=== PATIENT | female | born 1965 | race Caucasian/White ===

== ENCOUNTER 2016-05-03 11:10 | Emergency (ER) | payer OTHER ==
[2016-05-03 11:26] VITALS: BP 154/71; PULSE 77; TEMP 97.8; BMI 38.2
--- NOTE | 2016-05-03 12:17 | PDOC ---
History of Present Illness - General Chief Complaint: Rash Stated Complaint: ? shingles BACK PAIN, RASH Time Seen by Provider: 05/03/16 11:36 History Source: Patient Exam Limitations: No Limitations - History of Present Illness Initial Comments: 05/03/16 12:12 PAINFUL RASH RIGHT HIP X 1 WEEK, GETTING WORSE Timing/Duration: reports: getting worse, week Severity: Yes: mild Location: reports: torso. denies: genitalia Past History - Past Medical History Allergies/Adverse Reactions: Allergies Allergy/AdvReac Type Severity Reaction Status Date / Time No Known Allergies Allergy Verified 05/03/16 11:20 Home Medications: Ambulatory Orders Albuterol Sulfate Inhaler - [Ventolin HFA Inhaler -] 1 - 2 inh PO Q4H #1 inhaler 03/02/13 Metoprolol Tartrate [Lopressor -] 50 mg PO DAILY #30 tablet 09/20/13 Metronidazole [Flagyl] 500 mg PO QID #28 tablet 08/22/14 Oxycodone HCl/Acetaminophen [Percocet 5/325 -] 1 - 2 tab PO Q6H #20 tab Simvastatin 10 mg PO DAILY 08/22/14 Anemia: No Asthma: Yes (NO RECENT ATTACK) Cancer: No Cardiac Disorders: No CVA: No COPD: No CHF: No Dementia: No Diabetes: No GI Disorders: Yes (REFLUX) Disorders: No HTN: Yes Hypercholesterolemia: Yes Liver Disease: No Suicide Attempt (Hx): No Seizures: No Thyroid Disease: No - Surgical History Abdominal Surgery: No Appendectomy: Yes (EGD,COLONOSCOPY) Cardiac Surgery: No Cholecystectomy: Yes (LAPAROSCOPIC) Lung Surgery: No Neurologic Surgery: No Orthopedic Surgery: No - Psycho/Social/Smoking Cessation Hx Anxiety: No Suicidal Ideation: No Smoking Status: Yes Smoking History: Current every day smoker Have you smoked in the past 12 months: Yes Number of Cigarettes Smoked Daily: 8 Information on smoking cessation initiated: Yes 'Breaking Loose' booklet given: 05/03/16 Hx Alcohol Use: No Drug/Substance Use Hx: No Substance Use Type: None Hx Substance Use Treatment: No Review of Systems - Review of Systems Constitutional: No: Chills, Fever, Malaise HEENTM: Yes: Symptoms Reported Respiratory: No: Symptoms reported, Cough Cardiac (ROS): No: Symptoms Reported ABD/GI: No: Symptoms Reported Integumentary: Yes: Erythema, Rash *Physical Exam - Vital Signs Last Vital Signs Temp Pulse Resp BP Pulse Ox 97.8 F 77 18 154/71 100 05/03/16 11:23 05/03/16 11:23 05/03/16 11:23 05/03/16 11:23 05/03/16 11:23 - Physical Exam General Appearance: Yes: Appropriately Dressed. No: Apparent Distress HEENT: positive: TMs Normal, Pharynx Normal Neck: positive: Supple. negative: Tender, Rigid, Lymphadenopathy (R), Lymphadenopathy (L) Respiratory/Chest: positive: Lungs Clear Cardiovascular: negative: Regular Rhythm, Regular Rate Integumentary: positive: Other (SCALING, VESICULAR LESIONS ALONG SINGLE DERMATONE RIGHT HIP INTO GROIN) Medical Decision Making - Medical Decision Making 05/03/16 12:15 PE SUGGEST SHIGLES ; PT IMMUNECOMPETANT *DC/Admit/Observation/Transfer Diagnosis at time of Disposition: Herpes zoster Qualifiers: Herpes zoster complications: without complications Qualified Code(s): B02.9 - Zoster without complications - Discharge Dispostion Disposition: HOME Condition at time of disposition: Stable Admit: No - Patient Instructions Additional Instructions: TELL LOCAL MD IF RASH AND MEDS; MAY NEED FOLLOW UP
[2016-05-03] MEDS ORDERED: OXYCODONE/APAP 5/325MG COMBO TABLET PO ONE (12:20)
[2016-05-03] MEDS ORDERED: OXYCODONE/APAP 5/325MG COMBO TABLET ONE (12:23)
== END 2016-05-03 12:39 | disposition home or self-care (01) ==
LOC: JERFT 11:10
DX: B02.9 Zoster without complications (principal); I10 Essential (primary) hypertension; J45.909 Unspecified asthma, uncomplicated; E78.00 Pure hypercholesterolemia, unspecified; K21.9 Gastro-esophageal reflux disease without esophagitis; F17.210 Nicotine dependence, cigarettes, uncomplicated
CPT/HCPCS: 99281-25

== ENCOUNTER 2016-06-20 09:25 | Day surgery (SDC) | payer OTHER ==
[2016-06-17 12:46] VITALS: BMI 38.2
[2016-06-20 09:47] LABS: BASOPHIL 0.6 % (0-2.0); EOSINOPHIL 4.2 % (0-4.5); MCH 27.8 pg (25.7-33.7); MCHC 33.4 g/dl (32.0-36.0); MEAN CELL VOLUME 83.4 fl (80-96); MEAN PLT VOLUME 8.3 fl (7.5-11.1); NEUTROPHILS 64.2 % (42.8-82.8); PLATELET COUNT 263 K/MM3 (134-434); RDW 13.2 % (11.6-15.6); WHITE BLOOD COUNT 11.1 K/mm3 (4.0-10.0)
[2016-06-20 10:04] LABS: INR 1.02 (0.82-1.09); PROTHROMBIN TIME (PATIENT) 11.2 SEC (9.98-11.88)
[2016-06-20 10:14] VITALS: TEMP 98
[2016-06-20 16:32] VITALS: BP 107/64; PULSE 75
--- NOTE | 2016-06-22 10:00 | PATH ---
Surgical Pathology Report Patient Name: MUKUL HENDERSON [facility]. Rec. #: [id number] /Age/Gender: 1965 (Age: 51) / F Account: [id number] Location: RADIOLOGY Taken: 06/20/2016 Received: 06/20/2016 Reported: 06/22/2016 Physicians: Ailyn Garces D.O. Specimen(s) Received LIVER BIOPSY Clinical History 51yo female with abnormal LFTs and ultrasound suggesting fatty liver/BERTHA H Final Diagnosis LIVER, US GUIDED CORE BIOPSY: CHRONIC HEPATITIS WITH FOCAL BILE DUCT INJURY AND MILDLY ACTIVE STEATOHEPATITIS. STEATOSIS (~90%). PERIVENULAR, PERISINUSOIDAL AND PORTAL FIBROSIS (STAGE 1-2 OF 4). SEE COMMENT. Comment: The liver architecture appears preserved. The portal tracts show patchy mild inflammation comprised of lymphocytes, histocytes, scattered neutrophils and rare eosinophils; scattered plasma cells are noted. No significant interface activity is observed. Focal mild bile duct injury and focal ductular reaction are present. No portal granulomas identified. The lobules show patchy inflammation comprised of neutrophil and lymphocytes. Only focal mild hepatocyte ballooning is noted. Acidophils bodies are very rare. No definitive Lenore hyalin is identified. No lobular granulomas are noted. There is macro-and microvesicular steatosis present in approximately 90% of the biopsy material. Scattered glycogenated hepatocyte nuclei are seen. Trichrome stain highlights perivenular, perisinusoidal and portal fibrosis. Iron stain shows no siderosis. The histologic findings are of a chronic hepatitis with focal bile duct injury and focal ductular reaction along with steatohepatitis with mild activity, steatosis (~90%) and perivenular, perisinusoidal and portal fibrosis (stage 1-2 of 4). History of elevated antimitochondrial antibodies (AMA) and elevated alkaline phosphatase is noted. The presence of focal bile duct injury and ductular reaction with surrounding portal inflammation is suggestive of primary biliary cirrhosis (PBC) in proper clinical settings. While rare plasma cells are noted, no marked plasmacytosis or other significant histologic features of autoimmune hepatitis, such as significant interface activity/piecemeal necrosis, are seen. Reportedly autoimmune hepatitis serologies negative. Overall, the biopsy shows overlapping features of bile duct injury with patchy inflammation, most suggestive of PBC, and mildly active steatohepatitis with extensive steatosis. The etiology or steatohepatitis includes alcohol or non-alcohol related injury, such as drugs/toxins and metabolic conditions. Clinical and serological correlations are suggested. The case was discussed with Dr. Sukh Jasso on 06/22/16. Electronically Signed Eduard Butler M.D. Gross Description Received in formalin labeled "liver tissue" are 6 mayen, cylindrical portions of soft tissue ranging from 0.2-1.0 cm in length and averaging 0.1 cm in diameter. The specimen is submitted in toto in one cassette. 06/20/201606/20/2016
== END 2016-06-20 16:30 | disposition home or self-care (01) ==
LOC: JRADIR 09:25
PROVIDERS: ATTEND Internal Medicine Gastroenterology
PROC: BF45ZZZ Ultrasonography of Liver (ICD-10-PCS; principal; 2016-06-20)
PROC: 0FB03ZX Excision of Liver, Percutaneous Approach, Diagnostic (ICD-10-PCS; 2016-06-20)
DX: K75.81 Nonalcoholic steatohepatitis (NASH) (principal); K73.9 Chronic hepatitis, unspecified
CPT/HCPCS: 36415; 76942-TC; 85025; 85610; 87899; 88307-TC; 88313-TC

== ENCOUNTER 2016-06-27 11:33 | Emergency (ER) | payer OTHER ==
[2016-06-27 11:40] VITALS: BMI 38.2
--- NOTE | 2016-06-27 12:14 | PDOC ---
History of Present Illness - General Chief Complaint: Pain Stated Complaint: PRE-OP, BACK, SIDE PAIN Time Seen by Provider: 06/27/16 11:51 Past History - Past Medical History Allergies/Adverse Reactions: Allergies Allergy/AdvReac Type Severity Reaction Status Date / Time No Known Allergies Allergy Verified 06/27/16 11:40 Home Medications: Ambulatory Orders Simvastatin 10 mg PO DAILY 08/22/14 Metoprolol Tartrate [Lopressor -] 50 mg PO BID 06/27/16 Anemia: No Asthma: Yes (NO RECENT ATTACK) Cancer: No Cardiac Disorders: No CVA: No COPD: No CHF: No Dementia: No Diabetes: No GI Disorders: Yes (REFLUX) Disorders: No HTN: Yes Hypercholesterolemia: Yes Liver Disease: Yes (FATTY LIVER) Suicide Attempt (Hx): No Seizures: No Thyroid Disease: No - Surgical History Abdominal Surgery: No Appendectomy: Yes (EGD,COLONOSCOPY) Cardiac Surgery: No Cholecystectomy: Yes (LAPAROSCOPIC) Lung Surgery: No Neurologic Surgery: No Orthopedic Surgery: No - Psycho/Social/Smoking Cessation Hx Anxiety: No Suicidal Ideation: No Smoking Status: Yes Smoking History: Current every day smoker Have you smoked in the past 12 months: Yes Number of Cigarettes Smoked Daily: 8 Information on smoking cessation initiated: No 'Breaking Loose' booklet given: 05/03/16 Hx Alcohol Use: No Drug/Substance Use Hx: No Substance Use Type: None Hx Substance Use Treatment: No *Physical Exam - Vital Signs Last Vital Signs Temp Pulse Resp BP Pulse Ox 98.7 F 102 H 18 113/87 98 06/27/16 11:37 06/27/16 11:37 06/27/16 11:37 06/27/16 11:37 06/27/16 11:37
[2016-06-27] MEDS ORDERED: SODIUM CHLORIDE 1,000 ML IV STA (12:15)
[2016-06-27] MEDS ORDERED: morphine CARPU-JECT 4 MG/1 ML DISP.SYRIN IVPUSH ONE (12:15)
--- NOTE | 2016-06-27 12:26 | PDOC ---
History of Present Illness - General History Source: Patient Exam Limitations: No Limitations - History of Present Illness Initial Comments: 06/27/16 12:30 The patient is a 51 year old female with a significant past medical history of HTN, HLD, GERD who presents to the Emergency Department with RUQ pain s/p liver biopsy. Patient got a biopsy due to abnormal labs, but biopsy results are not back yet. She reports the abdominal pain is worse post-prandially. Since the biopsy, she also reports a rash on the surrounding area. She took Tylenol with no relief. She denies fever, chills, nausea, vomiting, diarrhea. PCP: Dr. Sunshine Early <Desiree Joy - Last Filed: 06/27/16 15:14> - General History Source: Patient, Old Records Exam Limitations: No Limitations <Roberto Carlos Mckeon - Last Filed: 06/27/16 16:14> - General Chief Complaint: Pain Stated Complaint: PRE-OP, BACK, SIDE PAIN Time Seen by Provider: 06/27/16 11:51 Past History <Desiree Joy - Last Filed: 06/27/16 15:14> - Past Medical History Anemia: No Asthma: Yes (NO RECENT ATTACK) Cancer: No Cardiac Disorders: No CVA: No COPD: No CHF: No Dementia: No Diabetes: No GI Disorders: Yes (REFLUX) Disorders: No HTN: Yes Hypercholesterolemia: Yes Liver Disease: Yes (FATTY LIVER) Suicide Attempt (Hx): No Seizures: No Thyroid Disease: No - Surgical History Abdominal Surgery: No Appendectomy: Yes (EGD,COLONOSCOPY) Cardiac Surgery: No Cholecystectomy: Yes (LAPAROSCOPIC) Lung Surgery: No Neurologic Surgery: No Orthopedic Surgery: No - Psycho/Social/Smoking Cessation Hx Anxiety: No Suicidal Ideation: No Smoking Status: Yes Smoking History: Current every day smoker Have you smoked in the past 12 months: Yes Number of Cigarettes Smoked Daily: 8 Information on smoking cessation initiated: No 'Breaking Loose' booklet given: 05/03/16 Hx Alcohol Use: No Drug/Substance Use Hx: No Substance Use Type: None Hx Substance Use Treatment: No <Roberto Carlos Mckeon - Last Filed: 06/27/16 16:14> - Past Medical History Allergies/Adverse Reactions: Allergies Allergy/AdvReac Type Severity Reaction Status Date / Time No Known Allergies Allergy Verified 06/27/16 11:40 Home Medications: Ambulatory Orders Simvastatin 10 mg PO DAILY 08/22/14 Clotrimazole/Betamet Diprop [Lotrisone Cream (Small Tube)] 1 applic TP BID #1 tube 06/27/16 Metoprolol Tartrate [Lopressor -] 50 mg PO BID 06/27/16 Oxycodone HCl/Acetaminophen [Percocet 5-325 mg Tablet] 1 tab PO Q6H PRN #15 tablet MDD 4 06/27/16 Review of Systems - Review of Systems Able to Perform ROS?: Yes Comments:: 06/27/16 12:30 GENERAL/CONSTITUTIONAL: No fever or chills. No weakness. HEAD, EYES, EARS, NOSE AND THROAT: No change in vision. No ear pain or discharge. No sore throat. CARDIOVASCULAR: No chest pain or shortness of breath. RESPIRATORY: No cough, wheezing, or hemoptysis. GASTROINTESTINAL: (+) RUQ pain. No nausea, vomiting, diarrhea or constipation. GENITOURINARY: No dysuria, frequency, or change in urination. MUSCULOSKELETAL: No joint or muscle swelling or pain. No neck or back pain. SKIN: (+) rash on abdomen NEUROLOGIC: No headache, vertigo, loss of consciousness, or change in strength/ sensation. ENDOCRINE: No increased thirst. No abnormal weight change. HEMATOLOGIC/LYMPHATIC: No anemia, easy bleeding, or history of blood clots. ALLERGIC/IMMUNOLOGIC: No hives or skin allergy. <Desiree Joy - Last Filed: 06/27/16 15:14> *Physical Exam - Vital Signs Last Vital Signs Temp Pulse Resp BP Pulse Ox 98.7 F 102 H 18 113/87 98 06/27/16 11:37 06/27/16 11:37 06/27/16 11:37 06/27/16 11:37 06/27/16 11:37 - Physical Exam Comments: 06/27/16 12:30 GENERAL: Awake, alert, and fully oriented, in no acute distress HEAD: No signs of trauma EYES: PERRLA, EOMI, sclera anicteric, conjunctiva clear ENT: Auricles normal inspection, hearing grossly normal, nares patent, oropharynx clear without exudates. Moist mucosa NECK: Normal ROM, supple, no lymphadenopathy, JVD, or masses LUNGS: Breath sounds equal, clear to auscultation bilaterally. No wheezes, and no crackles HEART: Regular rate and rhythm, normal S1 and S2, no murmurs, rubs or gallops ABDOMEN: Tenderness to epigastric and RUQ. Soft, normoactive bowel sounds. No guarding, no rebound. No masses EXTREMITIES: Normal range of motion, no edema. No clubbing or cyanosis. No cords, erythema, or tenderness NEUROLOGICAL: Cranial nerves II through XII grossly intact. Normal speech, normal gait SKIN: Demarcated macular papular rash along RUQ, approximately 6x5 cm. Warm, Dry , normal turgor. <Desiree Joy - Last Filed: 06/27/16 15:14> - Vital Signs Last Vital Signs Temp Pulse Resp BP Pulse Ox 98.7 F 102 H 18 113/87 98 06/27/16 11:37 06/27/16 11:37 06/27/16 11:37 06/27/16 11:37 06/27/16 11:37 <Roberto Carlos Mckeon - Last Filed: 06/27/16 16:14> ED Treatment Course - LABORATORY CBC & Chemistry Diagram: 06/27/16 12:56 06/27/16 12:56 - RADIOLOGY Radiograph Interpretation: 06/27/16 15:[address]: Reported by: Dr. Antoine Freedman Impression: Small hypodensity laterally in the subcapsular portion of the lower portion of the right lobe of the liver. This may represent a postbiopsy hematoma. Please correlate with the site of biopsy. No evidence of vascular malformation, extravasation of contrast or perihepatic stranding. Post cholecystectomy with normal appearance of the biliary system postop. <Desiree Joy - Last Filed: 06/27/16 15:14> - LABORATORY CBC & Chemistry Diagram: 06/27/16 12:56 06/27/16 12:56 - RADIOLOGY Radiology Studies Ordered: Category Date Time Status ABDOMEN & PELVIS CT WITH CONTR [CT] Stat CT Scan 06/27/16 12:15 Ordered <Roberto Carlos Mckeon - Last Filed: 06/27/16 16:14> Medical Decision Making - Medical Decision Making 06/27/16 12:22 A portion of this note was documented by scribe services under my direction. I have reviewed the details of the note, within reason, and agree with the documentation with the following case summary and management plan written by me. Patient treated in the ED. Nursing notes are reviewed and incorporated into the medical decision-making. Vital signs reviewed. Peripheral IV access obtained by the nurse, laboratory studies are drawn and sent, reviewed and interpreted by myself. Vital Signs Temp Pulse Resp BP Pulse Ox 98.7 F 102 H 18 113/87 98 06/27/16 11:37 06/27/16 11:37 06/27/16 11:37 06/27/16 11:37 06/27/16 11:37 51-year-old female with past medical history of hypertension presents with abdominal pain. On June 20, patient had an elective liver biopsy performed by interventional radiology in the setting of abnormal LFTs. Patient does not have the results of it. Since then, patient has developed worsening right and mid abdominal pain. Sometimes it really worsened with eating. Reports that the pain is constant not improved with Tylenol. Denies fevers, nausea, vomiting, diarrhea , dysuria. The pain progressively worsened which popped the patient come to the ED. Patient is also noticed a small contact dermatitis from the pads that were attached to her. Patient reports that it is somewhat itchy and uncomfortable. The patient's skin appears to be likely contact them otitis versus tinea. We'll likely need a steroid/antifungal cream. However, with the abdominal pain status post liver biopsy, we'll need to rule out postoperative complications. We'll obtain labs and a CAT scan abdomen pelvis and reassess. 06/27/16 15:59 CBC, BMP 06/27/16 12:56 06/27/16 12:56 CMP Sodium 144 mmol/L (136-145) 06/27/16 12:56 Potassium 4.1 mmol/L (3.5-5.1) D 06/27/16 12:56 Chloride 106 mmol/L (98-107) 06/27/16 12:56 Carbon Dioxide 32 mmol/L (21-32) D 06/27/16 12:56 Anion Gap 6 (8-16) L 06/27/16 12:56 BUN 12 mg/dL (7-18) 06/27/16 12:56 Creatinine 0.7 mg/dL (0.55-1.02) D 06/27/16 12:56 Creat Clearance w eGFR > 60 (>60) 06/27/16 12:56 Random Glucose 116 mg/dL (74-106) H D 06/27/16 12:56 Calcium 8.9 mg/dL (8.5-10.1) D 06/27/16 12:56 Total Bilirubin 0.4 mg/dL (0.2-1.0) D 06/27/16 12:56 AST 27 U/L (15-37) D 06/27/16 12:56 ALT 29 U/L (12-78) 06/27/16 12:56 Alkaline Phosphatase 174 U/L (45-117) H 06/27/16 12:56 Total Protein 6.4 g/dl (6.4-8.2) D 06/27/16 12:56 Albumin 3.3 g/dl (3.4-5.0) L D 06/27/16 12:56 Lipase 168 U/L (73-393) 06/27/16 12:56 06/27/16 16:14 CAT scan abdomen pelvis to restrict small hypodensity laterally in the subcapsular portion of the lower portion of the right lobe liver. Possibly represents post biopsy hematoma. Patient reassessed and she was reporting feeling better. This is likely postoperative pain. I had given the patient results of the CT scan. Dr. Martínez aware of the case and results. I had paged Dr. Brenner to inform him, and currently awaiting phone call back. However, the patient requests to go home now and wanted to follow up with them later as an outpatient. I discussed the physical exam findings, ancillary test results and final diagnoses with the patient. I answered all of the patient's questions. The patient was satisfied with the care received and felt comfortable with the discharge plan and treatment plan. The patient will call their primary care physician within 24 hours to arrange follow-up and will return to the Emergency Department with any new, persistant or worsening symptoms. <Roberto Carlos Mckeon - Last Filed: 06/27/16 16:14> *DC/Admit/Observation/Transfer - Attestations Scribe Attestion: 06/27/16 12:30 Documentation prepared by Desiree Joy, acting as resident medical officer for Roberto Carlos Mckeon MD. <Desiree Joy - Last Filed: 06/27/16 15:14> - Discharge Dispostion Admit: No <Roberto Carlos Mckeon - Last Filed: 06/27/16 16:14> Diagnosis at time of Disposition: Postoperative pain - Discharge Dispostion Disposition: HOME Condition at time of disposition: Improved - Prescriptions Prescriptions: Clotrimazole/Betamet Diprop [Lotrisone Cream (Small Tube)] 1 applic TP BID #1 tube Oxycodone HCl/Acetaminophen [Percocet 5-325 mg Tablet] 1 tab PO Q6H PRN #15 tablet MDD 4 PRN Reason: Severe Pain - Referrals Referrals: Sunshine Hook MD [Primary Care Provider] - - Patient Instructions Printed Discharge Instructions: DI for Postoperative Pain, DI for Rash Additional Instructions: Please apply the ointment onto your rash twice a day for the next [address] scan shows a small hematoma(bruise) on your liver, likely from your biopsy. Please take a tablet of percocet every 4 to 6 hours as needed for pain. Follow up with Dr. Martínez and Dr. Brenner as an outpatient. If you have uncontrollable pain, please return to the ER for further evaluation.
[2016-06-27] MEDS ORDERED: morphine CARPU-JECT 4 MG/1 ML DISP.SYRIN ONE (12:46)
[2016-06-27 13:21] LABS: BASOPHIL 0.3 % (0-2.0); EOSINOPHIL 3.5 % (0-4.5); MCH 27.7 pg (25.7-33.7); MCHC 33.4 g/dl (32.0-36.0); MEAN CELL VOLUME 82.9 fl (80-96); MEAN PLT VOLUME 8.2 fl (7.5-11.1); NEUTROPHILS 70.6 % (42.8-82.8); PLATELET COUNT 250 K/MM3 (134-434); RDW 13.4 % (11.6-15.6); WHITE BLOOD COUNT 12.8 K/mm3 (4.0-10.0)
[2016-06-27 13:26] LABS: URINE APPEARANCE CLEAR; URINE BILIRUBIN NEGATIVE (NEGATIVE); URINE BLOOD NEGATIVE (NEGATIVE); URINE COLOR YELLOW; URINE GLUCOSE (UA) NEGATIVE (NEGATIVE); URINE KETONE NEGATIVE (NEGATIVE); URINE NITRITE NEGATIVE (NEGATIVE); URINE PROTEIN NEGATIVE (NEGATIVE); URINE UROBILINOGEN 2.0 E.U/dl E.U./dl (0.2-1.0)
[2016-06-27 13:28] LABS: URINE LEUK ESTERASE 1+ (NEGATIVE)
[2016-06-27 13:49] LABS: ALBUMIN 3.3 g/dl (3.4-5.0); ANION GAP 6 (8-16); BILIRUBIN,TOTAL 0.4 mg/dL (0.2-1.0); CO2 32 mmol/L (21-32); COCKROFT - GAULT 133.4415; CREATININE 0.7 mg/dL (0.55-1.02); GLUCOSE,RANDOM 116 mg/dL (74-106); TOT PROT 6.4 g/dl (6.4-8.2)
[2016-06-27 13:58] LABS: SGOT/AST 27 U/L (15-37)
[2016-06-27 13:59] LABS: URINE BACTERIA RARE /hpf (NONE SEEN); URINE MUCUS RARE; URINE RBC 2 /hpf (0-3); URINE WBC 2 /hpf (3-5)
[2016-06-27 14:08] LABS: ALK PHOS 174 U/L (45-117); CALCIUM 8.9 mg/dL (8.5-10.1); SGPT/ALT 29 U/L (12-78)
[2016-06-27 16:30] VITALS: BP 117/71; PULSE 71; TEMP 98.1
== END 2016-06-27 16:35 | disposition home or self-care (01) ==
LOC: JER 11:33
PROC: 3E033NZ Introduction of Analgesics, Hypnotics, Sedatives into Peripheral Vein, Percutaneous Approach (ICD-10-PCS; principal; 2016-06-27)
DX: G89.18 Other acute postprocedural pain (principal); I10 Essential (primary) hypertension; E78.00 Pure hypercholesterolemia, unspecified; K76.0 Fatty (change of) liver, not elsewhere classified
CPT/HCPCS: 36415; 74177-TC; 80053; 81003; 81015; 83690; 85025; 99283-25

== ENCOUNTER 2016-12-05 10:50 | Emergency (ER) | payer OTHER ==
[2016-12-05 11:14] VITALS: BMI 38.2
[2016-12-05] MEDS ORDERED: SODIUM CHLORIDE 0.9% 1000 ML INFUS.BAG IV ONE (12:54)
[2016-12-05] MEDS ORDERED: ONDANSETRON 4 MG/2 ML VIAL IVPUSH ONE (12:54)
[2016-12-05] MEDS ORDERED: ACETAMINOPHEN 1000 MG/100 ML VIAL (NON FORMULARY) IVPB ONE (12:54)
[2016-12-05] MEDS ORDERED: ACETAMINOPHEN INJECTION 100 ML IVPB ONE (13:29)
[2016-12-05 13:30] LABS: BASOPHIL 0.4 % (0-2.0); EOSINOPHIL 0.2 % (0-4.5); MCH 27.7 pg (25.7-33.7); MCHC 33.7 g/dl (32.0-36.0); MEAN PLT VOLUME 8.2 fl (7.5-11.1); PLATELET COUNT 210 K/MM3 (134-434); RDW 13.5 % (11.6-15.6); URINE APPEARANCE SLCLOUDY; URINE BILIRUBIN NEGATIVE (NEGATIVE); URINE BLOOD 1+ (NEGATIVE); URINE COLOR YELLOW; URINE GLUCOSE (UA) NEGATIVE (NEGATIVE); URINE KETONE TRACE (NEGATIVE); URINE NITRITE NEGATIVE (NEGATIVE); URINE PROTEIN NEGATIVE (NEGATIVE); URINE UROBILINOGEN 4.0 E.U/dl mg/dL (0.2-1.0); WHITE BLOOD COUNT 11.8 K/mm3 (4.0-10.0)
[2016-12-05] MEDS ORDERED: ONDANSETRON 4 MG/2 ML VIAL ONE (13:30)
[2016-12-05 13:31] LABS: URINE LEUK ESTERASE 1+ (NEGATIVE)
[2016-12-05 13:32] LABS: URINE BACTERIA RARE /hpf (NONE SEEN); URINE MUCUS RARE; URINE RBC 2 /hpf (0-3); URINE WBC 5 /hpf (3-5)
--- NOTE | 2016-12-05 13:41 | PDOC ---
History of Present Illness - History of Present Illness Initial Comments: 12/05/16 13:42 51 y/o F with a significant PMHx of HTN, HLD, presents to the ED with lower abdominal pain since yesterday. She reports associated nausea, vomiting and diarrhea. She also reports a low grade fever. Reports a possible history of diverticulitis or colitis. She denies recent travel, or antibiotics. She denies urinary complaints. Denies chest pain, SOB. <Desiree Joy - Last Filed: 12/05/16 13:42> <Jocelyn Escalante - Last Filed: 12/05/16 17:34> - General Chief Complaint: Pain, Acute Stated Complaint: ABD PAIN Past History <Desiree Joy - Last Filed: 12/05/16 13:42> - Past Medical History Anemia: No Asthma: Yes (NO RECENT ATTACK) Cancer: No Cardiac Disorders: No CVA: No COPD: No CHF: No Dementia: No Diabetes: No GI Disorders: Yes (REFLUX) Disorders: No HTN: Yes Hypercholesterolemia: Yes Liver Disease: Yes (FATTY LIVER) Seizures: No Thyroid Disease: No - Surgical History Abdominal Surgery: No Appendectomy: Yes (EGD,COLONOSCOPY) Cardiac Surgery: No Cholecystectomy: Yes (LAPAROSCOPIC) Lung Surgery: No Neurologic Surgery: No Orthopedic Surgery: No - Immunization History Immunization Up to Date: Yes - Suicide/Smoking/Psychosocial Hx Smoking Status: Yes Smoking History: Current every day smoker Have you smoked in the past 12 months: Yes Number of Cigarettes Smoked Daily: 7 Information on smoking cessation initiated: No 'Breaking Loose' booklet given: 05/03/16 Hx Alcohol Use: No Drug/Substance Use Hx: No Substance Use Type: None Hx Substance Use Treatment: No <Jocelyn Escalante - Last Filed: 12/05/16 17:34> - Past Medical History Allergies/Adverse Reactions: Allergies Allergy/AdvReac Type Severity Reaction Status Date / Time No Known Allergies Allergy Verified 12/05/16 11:11 Home Medications: Ambulatory Orders Simvastatin 10 mg PO DAILY 08/22/14 Metoprolol Tartrate [Lopressor -] 50 mg PO BID 06/27/16 Ciprofloxacin [Cipro -] 500 mg PO Q12H #28 tablet MDD 2 12/05/16 Levofloxacin [Levaquin] 750 mg PO DAILY #10 tablet 12/05/16 Metronidazole [Flagyl -] 500 mg PO TID #42 tablet 12/05/16 Ursodiol [Actigall] 300 mg PO DAILY 12/05/16 Review of Systems - Review of Systems Comments:: 12/05/16 13:42 GENERAL/CONSTITUTIONAL: (+) fever. No chills. No weakness. HEAD, EYES, EARS, NOSE AND THROAT: No change in vision. No ear pain or discharge. No sore throat. CARDIOVASCULAR: No chest pain or shortness of breath. RESPIRATORY: No cough, wheezing, or hemoptysis. GASTROINTESTINAL: (+) lower abdominal pain, nausea, vomiting, diarrhea. No constipation. GENITOURINARY: No dysuria, frequency, or change in urination. MUSCULOSKELETAL: No joint or muscle swelling or pain. No neck or back pain. SKIN: No rash NEUROLOGIC: No headache, vertigo, loss of consciousness, or change in strength/ sensation. ENDOCRINE: No increased thirst. No abnormal weight change. HEMATOLOGIC/LYMPHATIC: No anemia, easy bleeding, or history of blood clots. ALLERGIC/IMMUNOLOGIC: No hives or skin allergy. <Desiree Joy - Last Filed: 12/05/16 13:42> *Physical Exam - Vital Signs Last Vital Signs Temp Pulse Resp BP Pulse Ox 100.3 F H 95 H 20 146/89 94 L 12/05/16 11:11 12/05/16 11:11 12/05/16 11:11 12/05/16 11:11 12/05/16 11:11 - Physical Exam Comments: 12/05/16 13:43 GENERAL: Awake, alert, and fully oriented, in no acute distress HEAD: No signs of trauma EYES: PERRLA, EOMI, sclera anicteric, conjunctiva clear ENT: Auricles normal inspection, nares patent, oropharynx clear without exudates. Moist mucosa NECK: Normal ROM, supple, no lymphadenopathy, JVD, or masses LUNGS: Breath sounds equal, clear to auscultation bilaterally. No wheezes, and no crackles HEART: Regular rate and rhythm, normal S1 and S2, no murmurs, rubs or gallops ABDOMEN: Soft, normoactive bowel sounds. Minimal LLQ tenderness. No guarding, no rebound. No masses EXTREMITIES: Normal range of motion, no edema. No clubbing or cyanosis. No cords, erythema, or tenderness NEUROLOGICAL: Cranial nerves II through XII grossly intact. Normal speech. SKIN: Warm, Dry, normal turgor, no rashes or lesions noted. <Desiree Joy - Last Filed: 12/05/16 13:42> - Vital Signs Last Vital Signs Temp Pulse Resp BP Pulse Ox 100.3 F H 95 H 20 146/89 94 L 12/05/16 11:11 12/05/16 11:11 12/05/16 11:11 12/05/16 11:11 12/05/16 11:11 <Jocelyn Escalante - Last Filed: 12/05/16 17:34> ED Treatment Course - LABORATORY CBC & Chemistry Diagram: 12/05/16 13:20 12/05/16 13:20 - ADDITIONAL ORDERS Additional order review: Laboratory Results 12/05/16 13:20 Urine Color Yellow Urine Appearance Slcloudy Urine pH 6.0 Urine Protein Negative Urine Glucose (UA) Negative Urine Ketones Trace H Urine Blood 1+ H Urine Nitrite Negative Urine Bilirubin Negative Urine Urobilinogen 4.0 e.u/dl H Urine RBC 2 Urine WBC 5 Ur Epithelial Cells Few Urine Bacteria Rare Urine Mucus Rare 12/05/16 13:20 RBC 5.13 MCV 82.0 MCHC 33.7 RDW 13.5 MPV 8.2 Neutrophils % 86.0 H D Lymphocytes % 9.0 D Monocytes % 4.4 Eosinophils % 0.2 D Basophils % 0.4 - Medications Given in the ED: ED Medications Discontinued Medications Generic Name Dose Route Start Last Admin Trade Name Minq PRN Reason Stop Dose Admin Acetaminophen 1,000 mg 12/05/16 12:54 12/05/16 13:38 Ofirmev Injection - IVPB 12/05/16 12:55 1,000 mg ONCE ONE Administration Ondansetron HCl 4 mg 12/05/16 12:54 12/05/16 13:38 Zofran Injection IVPUSH 12/05/16 12:55 4 mg ONCE ONE Administration Sodium Chloride 1,000 ml 12/05/16 12:54 12/05/16 13:38 Normal Saline - IV 12/05/16 12:55 1,000 ml ONCE ONE Administration <Desiree Joy - Last Filed: 12/05/16 13:42> - LABORATORY CBC & Chemistry Diagram: 12/05/16 13:20 12/05/16 13:20 - ADDITIONAL ORDERS Additional order review: Laboratory Results 12/05/16 13:20 Urine Color Yellow Urine Appearance Slcloudy Urine pH 6.0 Urine Protein Negative Urine Glucose (UA) Negative Urine Ketones Trace H Urine Blood 1+ H Urine Nitrite Negative Urine Bilirubin Negative Urine Urobilinogen 4.0 e.u/dl H Urine RBC 2 Urine WBC 5 Ur Epithelial Cells Few Urine Bacteria Rare Urine Mucus Rare - RADIOLOGY Radiology Studies Ordered: Category Date Time Status ABDOMEN & PELVIS CT WITH CONTR [CT] Stat CT Scan 12/05/16 13:05 Ordered <Jocelyn Escalante - Last Filed: 12/05/16 17:34> Medical Decision Making - Medical Decision Making 12/05/16 13:34 51 yo F with no pmhx here c/o abd pain n/v / d started yesterday. low grade fever. no urinary complaints no abx. recent travel one month ago to [facility]. no mod factors. has had similar in the past possible diveritulitis or colits. on exam awake alert lungs clear heart rrr no mrg abd soft mild llq ttp. no rebound no guarding. no cva tenderness. differential dehydration gastroenteritis, pancreatis, pyelo uti, electrolyte abnormality. skin warm and dry. alert oriented x 3. plan: ct a/p iv hydration pain control antiemetics. ua labs lipase reassess. 12/05/16 17:26 pt offered admission, would like to go home. recommmended clear fluids, antiobiotics and followup with dr. lozano. <Jocelyn Escalante - Last Filed: 12/05/16 17:34> *DC/Admit/Observation/Transfer - Attestations Scribe Attestion: 12/05/16 13:43 Documentation prepared by Desiree Joy, acting as medical or surgical instrument maker for Jocelyn Escalante MD. <Desiree Joy - Last Filed: 12/05/16 13:42> - Discharge Dispostion Admit: No <Jocelyn Escalante - Last Filed: 12/05/16 17:34> Diagnosis at time of Disposition: Diverticulitis - Discharge Dispostion Disposition: HOME Condition at time of disposition: Improved - Prescriptions Prescriptions: Ciprofloxacin [Cipro -] 500 mg PO Q12H #28 tablet MDD 2 Metronidazole [Flagyl -] 500 mg PO TID #42 tablet Levofloxacin [Levaquin] 750 mg PO DAILY #10 tablet - Referrals Referrals: Sunshine Hook MD [Primary Care Provider] - - Patient Instructions Printed Discharge Instructions: Diverticulitis Additional Instructions: you should take flagyl 500 mg three times a day x 10 days. you should also take levaquin 750 mg once daily x 10 days. return for vomiting, fever worsening pain or any concerns. follow up with Dr Lamas, call to schedule. liquid diet for 2 days or until pain is improving then advance to solids as tolerated.
[2016-12-05 13:59] LABS: ALBUMIN 3.2 g/dl (3.4-5.0); ANION GAP 8 (8-16); CALCIUM 8.6 mg/dL (8.5-10.1); CO2 28 mmol/L (21-32); CREATININE 0.7 mg/dL (0.55-1.02); GLUCOSE,RANDOM 114 mg/dL (74-106); SGOT/AST 19 U/L (15-37); SGPT/ALT 40 U/L (12-78)
[2016-12-05 14:00] LABS: ALK PHOS 202 U/L (45-117); BILIRUBIN,TOTAL 0.6 mg/dL (0.2-1.0); TOT PROT 6.4 g/dl (6.4-8.2)
[2016-12-05] MEDS ORDERED: CIPROFLOXACIN 400 MG/D5W 200 ML IVPB ONE (16:40)
[2016-12-05] MEDS ORDERED: METRONIDAZOLE 500 MG PREMIXED 100 ML IVPB ONE ×2 (16:40→16:55)
[2016-12-05 16:46] VITALS: BP 115/73; PULSE 70; TEMP 98.2
[2016-12-05] MEDS ORDERED: LEVOFLOXACIN 500 MG IVPB 100 ML IVPB ONE ×2 (17:32→17:35)
== END 2016-12-05 17:51 | disposition home or self-care (01) ==
LOC: JER 10:50
PROC: 3E03329 Introduction of Other Anti-infective into Peripheral Vein, Percutaneous Approach (ICD-10-PCS; principal; 2016-12-05)
PROC: 3E03329 Introduction of Other Anti-infective into Peripheral Vein, Percutaneous Approach (ICD-10-PCS; 2016-12-05)
PROC: 3E033NZ Introduction of Analgesics, Hypnotics, Sedatives into Peripheral Vein, Percutaneous Approach (ICD-10-PCS; 2016-12-05)
PROC: 3E033GC Introduction of Other Therapeutic Substance into Peripheral Vein, Percutaneous Approach (ICD-10-PCS; 2016-12-05)
DX: K57.92 Diverticulitis of intestine, part unspecified, without perforation or abscess without bleeding (principal); I10 Essential (primary) hypertension; F17.210 Nicotine dependence, cigarettes, uncomplicated
CPT/HCPCS: 36415; 74177-TC; 80053; 81003; 81015; 83690; 85025; 87086; 99282-25; Q9967

== ENCOUNTER 2017-02-15 07:47 | Day surgery (SDC) | payer OTHER ==
[2017-02-14 12:37] VITALS: BMI 38.2
[2017-02-15] MEDS ORDERED: PROPOFOL 20 ML ONE ×2 (09:03)
[2017-02-15] MEDS ORDERED: ceFAZolin SODIUM 1 GM VIAL ONE (09:13)
[2017-02-15 09:37] VITALS: TEMP 98
[2017-02-15 10:25] VITALS: BP 112/69; PULSE 54
--- NOTE | 2017-02-16 14:41 | PATH ---
Surgical Pathology Report Patient Name: MUKUL HENDERSON [facility]. Rec. #: [id number] /Age/Gender: 1965 (Age: 52) / F Account: [id number] Location: U-ENDOSCOPY Taken: 02/15/2017 Received: 02/15/2017 Reported: 02/16/2017 Physicians: Christoph Nunez M.D. Specimen(s) Received A: BX DUODENUM 2ND PORTION AND BULB B: BX ANTRUM Clinical History Preoperative diagnosis: Right upper quadrant pain, dysphagia, heartburn Postoperative diagnosis: Hiatal hernia, GERD Final Diagnosis A. DUODENUM, SECOND PORTION AND BULB, BIOPSY: DUODENAL MUCOSA WITHOUT SIGNIFICANT PATHOLOGIC FINDINGS. B. STOMACH, ANTRUM, BIOPSY: GASTRIC ANTRAL MUCOSA WITH MODERATE CHRONIC GASTRITIS. IMMUNOHISTOCHEMICAL STAIN FOR H. PYLORI IS NEGATIVE. Electronically Signed Colette Fajardo M.D. Gross Description A. Received in formalin, labeled "biopsy duodenum second portion and bulb" are 3 mayen, irregular portions of soft tissue ranging from 0.3-0.4 cm. in greatest dimension. The specimens are submitted in toto in one cassette. B. Received in formalin, labeled "biopsy antrum" are 4 mayen, irregular portions of soft tissue ranging from 0.3-0.4 cm. in greatest dimension. The specimens are submitted in toto in one cassette. 02/15/201702/15/2017
== END 2017-02-15 10:41 | disposition home or self-care (01) ==
LOC: JASU-ENDO 07:47
PROVIDERS: ATTEND Internal Medicine Gastroenterology
PROC: 0DB68ZX Excision of Stomach, Via Natural or Artificial Opening Endoscopic, Diagnostic (ICD-10-PCS; 2017-02-15)
PROC: 0DB98ZX Excision of Duodenum, Via Natural or Artificial Opening Endoscopic, Diagnostic (ICD-10-PCS; principal; 2017-02-15 08:30)
DX: K21.0 Gastro-esophageal reflux disease with esophagitis (principal); K44.9 Diaphragmatic hernia without obstruction or gangrene
CPT/HCPCS: 88305-TC; 88342-TC

== ENCOUNTER 2018-08-03 12:13 | Emergency (ER) | payer OTHER ==
[2018-08-03 12:20] VITALS: BMI 39.0
--- NOTE | 2018-08-03 12:51 | PDOC ---
History of Present Illness - General Chief Complaint: Pain Stated Complaint: ABD PAIN Time Seen by Provider: 08/03/18 12:32 - History of Present Illness Initial Comments: Millie Doan is a 53yo woman with a PMH of HTN, HLD, fatty liver, diverticulosis who presents with worsening lower abdominal pain and diarrhea over the past 2 weeks. She states that the pain began in the very low abdomen and has progressively spread upwards. It is associated with numerous episodes of diarrhea, and she has noticed blood in the stool recently as well. Ms Doan reports similar symptoms with her previous episodes of diverticulitis. She has been able to eat and drink liquids, but she says that she needs to "run to the bathroom" every time she tries to eat. She reports that over the past day or two , she has had only small, mucous-like bowel movements mixed with blood. Ms Doan says that she was trying to wait out her symptoms at home as she had to continue going to work. She had antibiotics at home from a previous episode of diverticulitis and took several days' worth with improvement in her symptoms , but the symptoms returned after a few days. She says that the pain has gotten very bad at this point, and she could no longer stay at home. Past History - Past Medical History Allergies/Adverse Reactions: Allergies Allergy/AdvReac Type Severity Reaction Status Date / Time No Known Allergies Allergy Verified 08/03/18 12:20 Home Medications: Ambulatory Orders Meclizine HCl [Antivert -] 25 mg PO QID #28 tablet 03/03/18 Metoprolol Tartrate 50 mg PO BID 03/03/18 Pantoprazole Sodium 40 mg PO DAILY 03/03/18 Simvastatin 10 mg PO HS 03/03/18 Ursodiol [Actigal] 300 mg PO BID 03/03/18 Ciprofloxacin [Cipro -] 500 mg PO Q12H #20 tablet 08/03/18 Metronidazole 500 mg PO Q8H #30 tablet 08/03/18 Anemia: No Asthma: Yes (NO RECENT ATTACK) Cancer: No Cardiac Disorders: No CVA: No COPD: No CHF: No Dementia: No Diabetes: No GI Disorders: Yes (REFLUX) Disorders: No HTN: Yes Hypercholesterolemia: Yes Liver Disease: Yes (FATTY LIVER) Seizures: No Thyroid Disease: No - Surgical History Abdominal Surgery: No Appendectomy: No Cardiac Surgery: No Cholecystectomy: Yes (LAPAROSCOPIC) Lung Surgery: No Neurologic Surgery: No Orthopedic Surgery: No - Immunization History Immunization Up to Date: Yes - Suicide/Smoking/Psychosocial Hx Smoking Status: Yes Smoking History: Current every day smoker Have you smoked in the past 12 months: Yes Number of Cigarettes Smoked Daily: 10 Information on smoking cessation initiated: Yes 'Breaking Loose' booklet given: 02/15/17 Hx Alcohol Use: No Drug/Substance Use Hx: No Substance Use Type: None Hx Substance Use Treatment: No Review of Systems - Review of Systems Comments:: General: No fevers, no chills, no weight or appetite change, no malaise HEENT: No changes in vision, no changes in hearing, no congestion, no sore throat CV: No chest pain, no palpitations, no LE edema Pulm: No SOB, no cough, no wheezing GI: See HPI : No frequency, no urgency, no dysuria Musc: No back pain, no joint swelling, no recent injury Skin: No rash, no lesions, no erythema Endo: No excessive thirst, no heat/cold intolerance Heme: No unusual bruising or bleeding, no swollen glands Neuro: No syncope, no numbness/tingling, no focal weakness Vasc: No claudication Psych: No recent change in mood, no SI or HI *Physical Exam - Vital Signs Last Vital Signs Temp Pulse Resp BP Pulse Ox 98.2 F 68 17 126/67 99 08/03/18 12:17 08/03/18 12:17 08/03/18 12:17 08/03/18 12:17 08/03/18 12:17 - Physical Exam Comments: General: Comfortable, no acute distress HEENT: PERRL, EOMI, MMM, voice normal, normal neck ROM, no LAD Cards: RRR, no murmur appreciated Pulm: Comfortable on room air, clear to auscultation bilaterally Abd: Soft, nondistended. Suprapubic/low abdominal TTP greatest in midline. No rigidity or guarding Rectal: Pt declined Ext: Atraumatic. No LE edema. ROM intact. Vasc: Extremities WWP. Skin: Normal color, no rashes or lesions Neuro: A&Ox3, CN grossly intact, normal speech, motor/sensory grossly intact and symmetric Psych: Mood appropriate to situation ED Treatment Course - LABORATORY CBC & Chemistry Diagram: 08/03/18 13:00 08/03/18 13:00 Medical Decision Making - Medical Decision Making 08/03/18 12:44 Millie Doan is a 53yo woman with a PMH of HTN, HLD, fatty liver, diverticulosis who presents with worsening lower abdominal pain and diarrhea over the past 2 weeks, now with BM's containing mucous and blood. She reports that her current symptoms are similar to previous episodes of diverticulitis. - Most likely diverticulitis given history of multiple prior similar episodes. However, has suprapubic TTP and reporting diarrhea, could be UTI/cystitis, colitis. Less likely appendicitis given location and duration of pain. - CBC, CMP, mag, phos, CT abd/pelvis with IV contrast. EKG, CXR for likely admission - UA, UCx ordered due to suprapubic TTP - 1L NS, IV acetaminophen for symptoms 08/03/18 14:18 - Labs reviewed. Notable for leukocytosis to 13. No other concerning abnormalities - UA negative - Per discussion w/ Dr Escalante, pt endorsed significant rectal bleeding to her during exam. Will need rectal exam for evaluation. - CT available, will take for scan 08/03/18 16:19 - Advised pt that she should have a rectal exam; she declined the exam. She says that she feels she only has bleeding when she strains to have a bowel movement, and she feels it is due to irritation - CT read still pending. Called radiology, should be completed soon 08/03/18 16:44 - CT suggestive of uncomplicated sigmoid diverticulitis. - Discussed with Ms Doan, she would prefer to be discharged home with PO antibiotics - Advised regarding home care, follow up, and return precautions at length. She states understanding and agreement. Discussed with Dr Escalante. [place] Gonsalves PGY1 *DC/Admit/Observation/Transfer Diagnosis at time of Disposition: Diverticulitis - Discharge Dispostion Condition at time of disposition: Stable - Referrals Referrals: Ricco Jenkins MD [Staff Physician] - - Patient Instructions Printed Discharge Instructions: DI for Diverticulitis Additional Instructions: Discharge Instructions: You were seen in the ED for abdominal pain, diarrhea, and rectal bleeding and were found to have an infection called diverticulitis. You have been prescribed two antibiotics that should be taken at home for your infection. Home Care: - You have been prescribed two antibiotics. One is called Flagyl (metronidazole ) and should be taken every 8 hours (three times daily). The other is called ciprofloxacin and should be taken every 12 hours (twice per day). - Both antibiotics should be taken until the entire prescription is completed. It is important to finish your antibiotics to help prevent recurrent or [id number] infections. The prescription is for 10 days - You may take acetaminophen (Tylenol) 650mg or ibuprofen (Advil, Motrin) 600mg every 6-8 hours as needed for pain. If you are concerned about your liver function, ibuprofen is probably a better option for you. However, your liver labs were normal during your ED visit. Check with your primary doctor if you are concerned about which pain medications are best. - Make sure you are drinking plenty of fluids. - Avoid spicy, greasy foods or diary products until you are feeling better - You may want to avoid solid foods until your symptoms improve Follow Up: - Make an appointment to see your regular doctor within a week for follow up - Schedule follow up with Dr Jenkins within 1-2 weeks - Seek immediate medical care if you have worsening symptoms, are unable to tolerate liquids, have severe pain that is not controlled by medications, have severe or worsening diarrhea, or you have any other medical emergency. - Post Discharge Activity
[2018-08-03] MEDS ORDERED: SODIUM CHLORIDE 0.9% 500 ML INFUS.BAG IV ONE (12:52)
[2018-08-03] MEDS ORDERED: ACETAMINOPHEN 1000 MG/100 ML VIAL (NON FORMULARY) IVPB ONE (12:52)
[2018-08-03] MEDS ORDERED: ACETAMINOPHEN INJECTION 100 ML IVPB ONE (12:56)
--- NOTE | 2018-08-03 13:05 | PDOC ---
Documentation entered by Aj Roche SCRIBE, acting as scribe for Jocelyn Escalante MD. Jocelyn Escalante MD: This documentation has been prepared by the Melchor langston Daniel, SCRIBE, under my direction and personally reviewed by me in its entirety. I confirm that the documentation accurately reflects all work, treatment, procedures, and medical decision making performed by me. Attending Attestation - Resident Resident Name: [place] - ED Attending Attestation I have performed the following: I have examined & evaluated the patient, The case was reviewed & discussed with the resident, I agree w/resident's findings & plan, Exceptions are as noted - HPI HPI: 08/03/18 13:05 The patient is a 53 year old female with a past medical history of HTN, HLD, fatty liver, and diverticulitis here today for evaluation of abdominal pain and diarrhea. The patient reports that she has been having 2 weeks of abdominal pain and diarrhea which feels like her previous bouts with diverticulitis. She reports that she took some leftover antibiotics which helped to reduce her pain and then the pain got worse. She reports that she has had blood in her stool and notes feeling lightheaded. Patient denies headache. Denies fever, chills. Denies chest pain, shortness of breath. Denies nausea, vomiting. Allergies: NKA GI: Ricco Lantin - Physicial Exam PE: 08/03/18 13:48 GENERAL: Awake, alert, and fully oriented, in no acute distress HEAD: No signs of trauma EYES: PERRLA, EOMI, sclera anicteric, conjunctiva clear ENT: Auricles normal inspection, hearing grossly normal, nares patent. Moist mucosa NECK: Normal ROM, supple, no lymphadenopathy, JVD, or masses LUNGS: Breath sounds equal, clear to auscultation bilaterally. No wheezes, and no crackles HEART: Regular rate and rhythm, normal S1 and S2, no murmurs, rubs or gallops ABDOMEN: +left lower quadrant and suprapubic tenderness to palpation. Soft, normoactive bowel sounds. No guarding, no rebound. No masses EXTREMITIES: Normal range of motion, no edema. No erythema or tenderness. DP/PT pulses 2+ and symmetric. Warm and well perfused. NEUROLOGICAL: Moves all extremities. Normal speech, normal gait SKIN: Warm, Dry, normal turgor, no rashes or lesions noted. - Medical Decision Making 08/03/18 13:02 53 yo F with h/o diverticulitis here with c/o 2 weeks llq lower abd pain. states she took few days of abx she had at home. no f/c pain worse with eating, frequent stools. loose now blood. on exam mild suprapubic ttp, no rebound no guarding. differential diverticulitis colitis, viral GE, plan ct a/p fluids labs ua. 08/03/18 16:46 pt labs unremarkalbe. hgb stable. pt refused rectal exam. WBC 13. ct a/p with uncomplicated diverticulitis. offered admission but declined. will fu with dr eulalio shelby pcp. given abx prescription for cipro/ flagyl x 10 days.
[2018-08-03 13:32] LABS: BASO % 0.4 % (0-2.0); EOS % 3.3 % (0-4.5); HEMATOCRIT 44.2 % (32.4-45.2); LYMPH % 18.4 % (8-40); MCH 27.8 pg (25.7-33.7); MCHC 33.9 g/dl (32.0-36.0); MEAN CELL VOLUME 82.2 fl (80-96); MEAN PLT VOLUME 8.4 fl (7.5-11.1); MONO % 4.4 % (3.8-10.2); NEUT % 73.5 % (42.8-82.8); PLATELET COUNT 345 K/MM3 (134-434); RBC 5.37 M/mm3 (3.60-5.2); RDW 13.3 % (11.6-15.6)
[2018-08-03 13:37] LABS: EPI CELLS 0.4 /HPF (0-5/HPF); HYALINE CASTS 0 /lpf (0-8); PH,URINE 7.5 (5.0-8.0); URINE APPEARANCE CLEAR; URINE BACTERIA 14.7 /hpf (NEGATIVE); URINE BILIRUBIN NEGATIVE (NEGATIVE); URINE COLOR YELLOW; URINE GLUCOSE (UA) NEGATIVE (NEGATIVE); URINE KETONE NEGATIVE (NEGATIVE); URINE LEUK ESTERASE TRACE (NEGATIVE); URINE NITRITE NEGATIVE (NEGATIVE); URINE PROTEIN NEGATIVE (NEGATIVE); URINE RBC 1 /hpf (0-4); URINE UROBILINOGEN 0.2 mg/dL (0.2-1.0); URINE WBC 1 /hpf (0-5)
[2018-08-03 14:00] LABS: ALBUMIN 3.5 g/dl (3.4-5.0); BILIRUBIN,TOTAL 0.3 mg/dL (0.2-1); CALCIUM 8.8 mg/dL (8.5-10.1); CREATININE 0.7 mg/dL (0.55-1.3); MAGNESIUM 2.2 mg/dL (1.8-2.4); PHOSPHOROUS 3.4 mg/dL (2.5-4.9); POTASSIUM 4.4 mmol/L (3.5-5.1); TOT PROT 7.1 g/dl (6.4-8.2)
[2018-08-03] MEDS ORDERED: metroNIDAZOLE 500 MG TABLET PO ONE (16:48)
[2018-08-03] MEDS ORDERED: CIPROFLOXACIN 500 MG TABLET (RESTRICTED TO ID) PO ONE (16:48)
[2018-08-03] MEDS ORDERED: metroNIDAZOLE 250 MG TABLET ONE (17:04)
[2018-08-03 17:24] VITALS: BP 112/68; PULSE 72; TEMP 97.8
--- NOTE | 2018-08-04 15:37 | EKG ---
Test Reason : Blood Pressure : / mmHG Vent. Rate : 069 BPM Atrial Rate : 069 BPM P-R Int : 152 ms QRS Dur : 082 ms QT Int : 398 ms P-R-T Axes : 071 059 060 degrees QTc Int : 426 ms NORMAL SINUS RHYTHM NORMAL ECG WHEN COMPARED WITH ECG OF 03-MAR-2018 16:49, NO SIGNIFICANT CHANGE WAS FOUND Confirmed by MD Ramirez Daniel ([id number]) on 08/04/2018 3:37:38 PM Referred By: Confirmed By:Aj Ramirez MD
== END 2018-08-03 17:26 | disposition home or self-care (01) ==
LOC: JER 12:13
PROC: 3E033NZ Introduction of Analgesics, Hypnotics, Sedatives into Peripheral Vein, Percutaneous Approach (ICD-10-PCS; principal; 2018-08-03)
PROC: 3E0337Z Introduction of Electrolytic and Water Balance Substance into Peripheral Vein, Percutaneous Approach (ICD-10-PCS; 2018-08-03)
DX: K57.92 Diverticulitis of intestine, part unspecified, without perforation or abscess without bleeding (principal); I10 Essential (primary) hypertension; E78.5 Hyperlipidemia, unspecified; K76.0 Fatty (change of) liver, not elsewhere classified
CPT/HCPCS: 36415; 71046-TC-FY; 74177-TC; 80053; 81003; 83735; 84100; 85025; 87086; 93005; 93010; 99282-25; J0131

== ENCOUNTER 2019-01-04 22:31 | Emergency (ER) | payer OTHER ==
[2019-01-04 22:43] VITALS: BP 125/73; PULSE 95; TEMP 99; BMI 39.0
--- NOTE | 2019-01-04 22:56 | PDOC ---
History of Present Illness - General Chief Complaint: Pain Stated Complaint: PAIN ON LEFT SIDE Time Seen by Provider: 01/04/19 22:46 History Source: Patient Exam Limitations: No Limitations - History of Present Illness Initial Comments: 01/04/19 22:55 Millie Doan is a 53F with HTN, HLD, fatty liver, and prior diverticulitis presenting with acute onset LLQ pain. Patient says she was asymptomatic until 12:45 today, when she had an acute onset LLQ pain that is constant, rated at 7/10, non-radiating, and non- positional. Accompanied by nausea/vomiting, denies constipation/diarrhea, last BM today, able to tolerate PO today, denies eating spoiled foods, no other sick contacts at work or at home. Denies fevers/chills, HERNANDEZ, CP, SOB. Denies history of kidney stones, no urinary symptoms reported today. LMP >10 years ago, denies vaginal discharge or [employer] history. PSH cholecystectomy. Denies alcohol/drug/ tobacco use. Denies trauma to abdomen. Past History - Past Medical History Allergies/Adverse Reactions: Allergies Allergy/AdvReac Type Severity Reaction Status Date / Time No Known Allergies Allergy Verified 01/04/19 22:39 Home Medications: Ambulatory Orders Ciprofloxacin [Cipro (Restricted To Id)] 500 mg PO Q12H 10 Days #20 tablet 01/05 metroNIDAZOLE [Flagyl -] 500 mg PO TID 10 Days #30 tablet 01/05/19 Anemia: No Asthma: Yes (NO RECENT ATTACK) Cancer: No Cardiac Disorders: No CVA: No COPD: No CHF: No Dementia: No Diabetes: No GI Disorders: Yes (REFLUX) Disorders: No HTN: Yes Hypercholesterolemia: Yes Liver Disease: Yes (FATTY LIVER) Seizures: No Thyroid Disease: No - Surgical History Abdominal Surgery: No Appendectomy: No Cardiac Surgery: No Cholecystectomy: Yes (LAPAROSCOPIC) Lung Surgery: No Neurologic Surgery: No Orthopedic Surgery: No - Immunization History Immunization Up to Date: Yes - Psycho Social/Smoking Cessation Hx Smoking Status: Yes Smoking History: Current every day smoker Have you smoked in the past 12 months: Yes Number of Cigarettes Smoked Daily: 10 Information on smoking cessation initiated: No 'Breaking Loose' booklet given: 02/15/17 Hx Alcohol Use: No Drug/Substance Use Hx: No Substance Use Type: None Hx Substance Use Treatment: No Review of Systems - Review of Systems Able to Perform ROS?: Yes Constitutional: Yes: Loss of Appetite. No: Fever, Night Sweats HEENTM: No: Symptoms Reported Respiratory: No: Symptoms reported Cardiac (ROS): No: Symptoms Reported ABD/GI: Yes: Nausea, Vomiting, Other (abdominal pain). No: Abd. Pain w/ defecation, Blood Streaked Bowels, Constipated, Diarrhea, Difficulty Swallowing : No: Burning, Dysuria, Discharge, Frequency, Flank Pain, Hematuria, Incontinence, Pain Musculoskeletal: No: Symptoms Reported Integumentary: No: Symptoms Reported Neurological: No: Symptoms reported Endocrine: No: Symptoms Reported Hematologic/Lymphatic: No: Symptoms Reported All Other Systems: Reviewed and Negative *Physical Exam - Vital Signs Last Vital Signs Temp Pulse Resp BP Pulse Ox 99.0 F 95 H 18 125/73 100 01/04/19 22:37 01/04/19 22:37 01/04/19 22:37 01/04/19 22:37 01/04/19 22:37 - Physical Exam General Appearance: Yes: Nourished, Appropriately Dressed, Mild Distress (with movement) HEENT: positive: EOMI, ROLANDO, Normal ENT Inspection, Pharynx Normal, Hearing Grossly Normal. negative: Scleral Icterus (R), Scleral Icterus (L), Muffled/ Hoarse voice, Pharyngeal Erythema, Tonsillar Erythema Neck: positive: Trachea midline, Normal Thyroid, Supple. negative: Tender, Rigid, Lymphadenopathy (R), Lymphadenopathy (L) Respiratory/Chest: positive: Lungs Clear, Normal Breath Sounds. negative: Chest Tender, Respiratory Distress, Accessory Muscle Use, Crackles, Rales, Rhonchi Cardiovascular: positive: Regular Rhythm, Regular Rate. negative: Edema, Murmur Gastrointestinal/Abdominal: positive: Normal Bowel Sounds, Tender (LLQ tenderness, no rebound/guarding, no evidence of traumatic injury or cellulitis) , Flat, Soft, Other (negative straight leg raise, negative Jordan sign). negative: Organomegaly, Guarding, Rebound Musculoskeletal: positive: Normal Inspection. negative: CVA Tenderness Extremity: positive: Normal Capillary Refill, Normal Inspection, Normal Range of Motion, Tender. negative: Cyanosis, Pedal Edema Integumentary: positive: Normal Color, Dry, Warm. negative: Clammy, Diaphoresis , Ecchymosis, Bruising Neurologic: positive: Alert, Normal Mood/Affect, Normal Response ED Treatment Course - LABORATORY CBC & Chemistry Diagram: 01/04/19 23:30 01/04/19 23:30 Medical Decision Making - Medical Decision Making 01/04/19 22:55 Millie Doan is a 53F with HTN, HLD, fatty liver, and prior diverticulitis presenting with acute onset LLQ pain. Acute onset of LLQ pain concerning for repeat diverticulitis, ovarian torsion, renal calculus/pyelo, TOA/PID, colitis. Will evaluate via: CMP CBC Lipase Coags CT abd/pel with PO contrast ECG UA/UC 01/05/19 00:13 Labs notable for: WBC 14.3 consistent with infection UA +leuks, 100 bacteria Patient given PO contrast to start drinking 01/05/19 00:50 Starting on 400mg cipro and 500mg Flagyl for presumed diverticulitis 01/05/19 01:43 Patient has finished PO contrast, will bring to CT. 01/05/19 04:13 CT read shows wall thickening in pericolonic inflammatory change surrounding a diverticulum in the distal descending colon compatible with acute diverticulitis. No extraluminal gas or fluid collection. Elevated WBC with CT evidence of diverticulitis w/o perforation, will treat outpatient with PO Abx 500mg Flagyl TID and 500mg Cipro Q12hr for10 day course and f/u GI. Discharge - Discharge Information Problems reviewed: Yes Clinical Impression/Diagnosis: Abdominal pain Qualifiers: Abdominal location: left lower quadrant Qualified Code(s): R10.32 - Left lower quadrant pain Condition: Stable - Admission No - Additional Discharge Information Prescriptions: Ciprofloxacin [Cipro (Restricted To Id)] 500 mg PO Q12H 10 Days #20 tablet metroNIDAZOLE [Flagyl -] 500 mg PO TID 10 Days #30 tablet - Follow up/Referral Referrals: Sunshine Hook MD [Primary Care Provider] - Christoph Nunez MD [Staff Physician] - - Patient Discharge Instructions Additional Instructions: Today you were evaluated for abdominal pain. We got a CT scan and blood labs that show that you have diverticulitis. We gave you antibiotics in the emergency room, and are giving you a prescription for the same antibiotics, ciprofloxacin and metronidazole. Please take them as prescribed for the next 10 days without missing a dose. At home, take your antibiotics and only eat a clear liquid diet until you speak to your fabricator artificial breast Dr. Nunez. This means soups or liquids only, no solid foods. Please follow-up with your primary doctor in the next 3 days, and with a fabricator artificial breast in the next week for further care. If you experience worsening abdominal pain, diarrhea, bloody stools, chest pain, nausea, vomiting , fever, or any other new or concerning symptoms, please return to the closest emergency room. - Post Discharge Activity Work/Back to School Note: Back to Work
[2019-01-04] MEDS ORDERED: SODIUM CHLORIDE 0.9% 500 ML INFUS.BAG IV ONE (23:32)
[2019-01-04] MEDS ORDERED: ACETAMINOPHEN 1000 MG/100 ML VIAL (NON FORMULARY) IVPB ONE (23:50)
[2019-01-04 23:53] LABS: BASO % 0.4 % (0-2.0); EOS % 2.2 % (0-4.5); HEMATOCRIT 44.6 % (32.4-45.2); HEMOGLOBIN 14.6 GM/dL (10.7-15.3); LYMPH % 14.8 % (8-40); MCH 27.3 pg (25.7-33.7); MCHC 32.8 g/dl (32.0-36.0); MEAN CELL VOLUME 83.2 fl (80-96); MEAN PLT VOLUME 8.1 fl (7.5-11.1); MONO % 5.4 % (3.8-10.2); NEUT % 77.2 % (42.8-82.8); PLATELET COUNT 299 K/MM3 (134-434); RBC 5.37 M/mm3 (3.60-5.2); RDW 13.2 % (11.6-15.6); WHITE BLOOD COUNT 14.3 K/mm3 (4.0-10.0)
[2019-01-04] MEDS ORDERED: ACETAMINOPHEN INJECTION 100 ML IVPB ONE (23:57)
[2019-01-05 00:02] LABS: EPI CELLS 1.4 /HPF (0-5/HPF); HYALINE CASTS 1 /lpf (0-8); URINE APPEARANCE CLEAR; URINE BACTERIA 100.1 /hpf (NEGATIVE); URINE BILIRUBIN NEGATIVE (NEGATIVE); URINE COLOR YELLOW; URINE GLUCOSE (UA) NEGATIVE (NEGATIVE); URINE KETONE NEGATIVE (NEGATIVE); URINE LEUK ESTERASE 1+ (NEGATIVE); URINE NITRITE NEGATIVE (NEGATIVE); URINE PROTEIN NEGATIVE (NEGATIVE); URINE RBC 4 /hpf (0-4); URINE UROBILINOGEN 0.2 mg/dL (0.2-1.0); URINE WBC 5 /hpf (0-5)
[2019-01-05 00:13] LABS: ALBUMIN 3.4 g/dl (3.4-5.0); BILIRUBIN,TOTAL 0.5 mg/dL (0.2-1); BLOOD UREA NITROGEN 10.3 mg/dL (7-18); CALCIUM 9.7 mg/dL (8.5-10.1); CREATININE 0.8 mg/dL (0.55-1.3); INR 1.11 (0.83-1.09); POTASSIUM 4.3 mmol/L (3.5-5.1); PROTHROMBIN TIME (PATIENT) 13.1 SEC (9.7-13.0); TOT PROT 6.6 g/dl (6.4-8.2)
--- NOTE | 2019-01-05 00:41 | PDOC ---
Documentation entered by Nya Stokes SCRIBE, acting as scribe for Ki Howard MD. Ki Howard MD: This documentation has been prepared by the Kike langston Adrianna, SCRIBE, under my direction and personally reviewed by me in its entirety. I confirm that the documentation accurately reflects all work, treatment, procedures, and medical decision making performed by me. Attending Attestation - Resident Resident Name: HiginiozainAbel - ED Attending Attestation I have performed the following: I have examined & evaluated the patient, The case was reviewed & discussed with the resident, I agree w/resident's findings & plan, Exceptions are as noted - HPI HPI: 53 y.o F, with PMH of HTN, HLD, fatty liver, and diverticulosis, presents with abdominal pain for 12 hours. Patient complains of sudden onset, constant LLQ abdominal pain. She endorses a couple episodes of nausea and NBNB vomit. LBM was this morning and normal. Allergies: NKA, NKDA Surgical History: cholecystectomy Social History: Current every smoker (1/2 ppd) PCP: Dr. Hook - Physicial Exam PE: 01/05/19 00:40 Patient is awake and alert, well-nourished, mild distress Normocephalic and atraumatic PERRLA, EOMI, no scleral icterus CTA RRR Mild to moderate left lower quadrant tenderness to deep palpation without guarding rebound - Medical Decision Making 01/05/19 00:41 Patient is a 53-year-old female with history of hyperlipidemia, fatty liver, hypertension, previous history of diverticulitis who presents with signs and symptoms of acute diverticulitis. Will obtain CBC/CMP/UA. Will obtain CT of abdomen pelvis with p.o. contrast. will consider po vs iv abx. Will reassess.
[2019-01-05] MEDS ORDERED: CIPROFLOXACIN 400 MG/D5W 400 MG/200 ML IVPB IVPB ONE (00:49)
--- NOTE | 2019-01-05 14:45 | EKG ---
Test Reason : Blood Pressure : / mmHG Vent. Rate : 091 BPM Atrial Rate : 091 BPM P-R Int : 140 ms QRS Dur : 080 ms QT Int : 354 ms P-R-T Axes : 070 061 053 degrees QTc Int : 435 ms NORMAL SINUS RHYTHM LOW VOLTAGE QRS BORDERLINE ECG WHEN COMPARED WITH ECG OF 03-AUG-2018 13:14, NO SIGNIFICANT CHANGE WAS FOUND Confirmed by NEDRA SIMON, DONTE ([id number]) on 01/05/2019 2:45:37 PM Referred By: Confirmed By:DONTE SNEED MD
== END 2019-01-05 04:41 | disposition home or self-care (01) ==
LOC: JER 22:31
PROC: 3E03329 Introduction of Other Anti-infective into Peripheral Vein, Percutaneous Approach (ICD-10-PCS; principal; 2019-01-04)
PROC: 3E03329 Introduction of Other Anti-infective into Peripheral Vein, Percutaneous Approach (ICD-10-PCS; 2019-01-04)
PROC: 3E033NZ Introduction of Analgesics, Hypnotics, Sedatives into Peripheral Vein, Percutaneous Approach (ICD-10-PCS; 2019-01-04)
DX: R10.32 Left lower quadrant pain (principal); I10 Essential (primary) hypertension; E78.5 Hyperlipidemia, unspecified; K76.0 Fatty (change of) liver, not elsewhere classified; K57.32 Diverticulitis of large intestine without perforation or abscess without bleeding; F17.210 Nicotine dependence, cigarettes, uncomplicated; Z90.49 Acquired absence of other specified parts of digestive tract; K21.9 Gastro-esophageal reflux disease without esophagitis; Z87.09 Personal history of other diseases of the respiratory system
CPT/HCPCS: 36415; 74177-TC; 80053; 81003; 83690; 85025; 85610; 85730; 87086; 93005; 93010; 99283-25; J0131

== ENCOUNTER 2019-02-14 09:45 | Emergency (ER) | payer OTHER ==
[2019-02-14 09:59] VITALS: BP 108/61; PULSE 90; TEMP 98.1; BMI 39.0
[2019-02-14] MEDS ORDERED: METHOCARBAMOL 500 MG TABLET PO ONE (10:24)
[2019-02-14] MEDS ORDERED: KETOROLAC TROMETHAMINE 60 MG/2 ML VIAL IM ONE (10:24)
[2019-02-14] MEDS ORDERED: KETOROLAC TROMETHAMINE 60 MG/2 ML VIAL ONE (10:31)
[2019-02-14] MEDS ORDERED: METHOCARBAMOL 500 MG TABLET ONE (10:32)
--- NOTE | 2019-02-14 10:42 | PDOC ---
History of Present Illness - General Chief Complaint: Back Pain Stated Complaint: LOWER BACK PAIN Time Seen by Provider: 02/14/19 10:02 History Source: Patient Exam Limitations: No Limitations Past History - Past Medical History Allergies/Adverse Reactions: Allergies Allergy/AdvReac Type Severity Reaction Status Date / Time No Known Allergies Allergy Verified 02/14/19 09:54 Home Medications: Ambulatory Orders Ciprofloxacin [Cipro (Restricted To Id)] 500 mg PO Q12H 10 Days #20 tablet 01/05 Ciprofloxacin [Cipro -] 500 mg PO Q12H #20 tablet MDD 2 tab 01/05/19 metroNIDAZOLE [Flagyl -] 500 mg PO TID 10 Days #30 tablet 01/05/19 Methocarbamol [Robaxin -] 1,500 mg PO Q6H PRN #24 tablet 02/14/19 Anemia: No Asthma: Yes (NO RECENT ATTACK) Cancer: No Cardiac Disorders: No CVA: No COPD: No CHF: No Dementia: No Diabetes: No GI Disorders: Yes (REFLUX) Disorders: No HTN: Yes Hypercholesterolemia: Yes Liver Disease: Yes (FATTY LIVER) Seizures: No Thyroid Disease: No - Surgical History Abdominal Surgery: No Appendectomy: No Cardiac Surgery: No Cholecystectomy: Yes (LAPAROSCOPIC) Lung Surgery: No Neurologic Surgery: No Orthopedic Surgery: No - Immunization History Immunization Up to Date: Yes - Psycho Social/Smoking Cessation Hx Smoking Status: Yes Smoking History: Current every day smoker Have you smoked in the past 12 months: Yes Number of Cigarettes Smoked Daily: 10 Information on smoking cessation initiated: Yes 'Breaking Loose' booklet given: 02/15/17 Hx Alcohol Use: No Drug/Substance Use Hx: No Substance Use Type: None Hx Substance Use Treatment: No *Physical Exam - Vital Signs Last Vital Signs Temp Pulse Resp BP Pulse Ox 98.1 F 90 16 108/61 98 02/14/19 09:55 02/14/19 09:55 02/14/19 09:55 02/14/19 09:55 02/14/19 09:55 - Physical Exam General Appearance: No: Apparent Distress Musculoskeletal: positive: Muscle Spasm (+L lumbar paraspinal muscles). negative: Vertebral Tenderness Integumentary: positive: Normal Color Neurologic: positive: Alert, Normal Mood/Affect, Motor Strength 5/5, Other ( normal gait) ED Treatment Course - Medications Given in the ED: ED Medications Discontinued Medications Generic Name Dose Route Start Last Admin Trade Name Freq PRN Reason Stop Dose Admin Ketorolac Tromethamine 60 mg 02/14/19 10:24 02/14/19 10:37 Toradol Injection - IM 02/14/19 10:25 60 mg ONCE ONE Administration Methocarbamol 1,000 mg 02/14/19 10:24 02/14/19 10:37 Robaxin - PO 02/14/19 10:25 1,000 mg ONCE ONE Administration Medical Decision Making - Medical Decision Making 54 y/o F with hx of HTN, HLD, fatty liver, diverticulosis, L5 herniated disc presents with nonradiating lower back pain s/p cleaning and lifting heavy bed 2 days ago. Has tried Motrin (last took yesterday) without much relief of pain. Denies fever, sob, cp, abd pain, n/v, urinary sxs, numbness/tingling/weakness of extremities. Did not fall Likely muscle strain Patient received toradol and robaxin; felt better stable for dc 02/14/19 10:38 Discharge - Discharge Information Problems reviewed: Yes Clinical Impression/Diagnosis: Spasm of muscle of lower back Condition: Stable Disposition: HOME - Admission No - Additional Discharge Information Prescriptions: Methocarbamol [Robaxin -] 1,500 mg PO Q6H PRN #24 tablet PRN Reason: Muscle Spasms Prescription Drug Monitoring Program (I-STOP) results: I-STOP not reviewed - Follow up/Referral Referrals: Sunshine Hook MD [Primary Care Provider] - 2 Days - Patient Discharge Instructions Patient Printed Discharge Instructions: DI for Muscle Spasm Additional Instructions: Thank you for choosing [facility]. It was a pleasure taking care of you. You may take Motrin 600 mg every 6 hours by mouth as needed for mild to moderate pain. Take Motrin with food. Take Robaxin as needed for muscle spasms. This medication can also make you drowsy so please be cautious with driving or performing heavy physical work. Warm compresses/heating pads/epsom salt baths may also help Follow-up with your doctor in 2 days Return to the Emergency Department if your symptoms worsen or persist, you have fever, shortness of breath, chest pain, severe abdominal pain, vomiting, weakness of extremities (arms and/or legs), unable to control bowel or bladder movements or other concerning symptoms. - Post Discharge Activity
== END 2019-02-14 10:55 | disposition home or self-care (01) ==
LOC: JERFT 09:45
PROC: 3E0233Z Introduction of Anti-inflammatory into Muscle, Percutaneous Approach (ICD-10-PCS; principal; 2019-02-14)
DX: M62.830 Muscle spasm of back (principal); I10 Essential (primary) hypertension; E78.5 Hyperlipidemia, unspecified; K76.0 Fatty (change of) liver, not elsewhere classified; K57.92 Diverticulitis of intestine, part unspecified, without perforation or abscess without bleeding; F17.210 Nicotine dependence, cigarettes, uncomplicated; K21.9 Gastro-esophageal reflux disease without esophagitis; E78.00 Pure hypercholesterolemia, unspecified; J45.909 Unspecified asthma, uncomplicated
CPT/HCPCS: 99281-25

== ENCOUNTER 2020-06-19 13:23 | Emergency (ER) | payer BC ==
[2020-06-19] MEDS ORDERED: CASIRIVIMAB (REGN10933) 1,200 MG, IMDEVIMAB (REGN10987) 1,200 MG in SODIUM CHLORIDE 250 ML IVPB ONE (13:31)
[2020-06-19 13:40] VITALS: BMI 38.2
[2020-06-19 14:52] LABS: HEMATOCRIT 41.9 % (32.4-45.2); HEMOGLOBIN 14.6 GM/dL (10.7-15.3); MCH 28.7 pg (25.7-33.7); MCHC 34.8 g/dl (32.0-36.0); MEAN CELL VOLUME 82.3 fl (80-96); MEAN PLT VOLUME 8.4 fl (7.5-11.1); PLATELET COUNT 235 K/MM3 (134-434); RBC 5.08 M/mm3 (3.60-5.2); RDW 13.8 % (11.6-15.6); WHITE BLOOD COUNT 5.8 K/mm3 (4.0-10.0)
[2020-06-19 15:09] LABS: POTASSIUM 4.2 mmol/L (3.5-5.1)
[2020-06-19 15:10] LABS: BLOOD UREA NITROGEN 9.8 mg/dL (7-18); CALCIUM 8.3 mg/dL (8.5-10.1)
[2020-06-19 15:14] LABS: CREATININE 0.7 mg/dL (0.55-1.3)
[2020-06-19 17:00] VITALS: BP 127/74; PULSE 79; TEMP 98.2
== END 2020-06-19 17:22 | disposition home or self-care (01) ==
LOC: JER 13:23
DX: U07.1 COVID-19 (principal)
CPT/HCPCS: 36415; 71046-TC-FY; 80048; 85027; 99284-25; M0243; Q0243

== ENCOUNTER 2022-03-22 04:34 | Day surgery (SDC) | payer BC ==
[2022-03-17 11:38] VITALS: BMI 37.7
[~2022-03-22 04:34] MED LIST: LIDOCAINE HCL 1%, 10 MG/ML (20ML VIAL) INF ONE
[2022-03-22] MEDS ORDERED: MIDAZOLAM HCL 2 MG/2 ML SINGLE DOSE VIAL ONE (08:58)
[2022-03-22] MEDS ORDERED: ISOSULFAN BLUE 50 MG/5 ML VIAL SQ ONE (09:10)
[2022-03-22] MEDS ORDERED: METHYLENE BLUE 50 MG/10 ML AMPUL ONE (09:10)
[2022-03-22] MEDS ORDERED: BUPIVACAINE HCL/PF 0.5% (5MG/ML) 10 ML VIAL ONE (09:11)
[2022-03-22] MEDS ORDERED: LIDOCAINE HCL 1%, 10 MG/ML (20ML VIAL) ONE (09:11)
[2022-03-22] MEDS ORDERED: ceFAZolin SODIUM 1 GM VIAL IVPB ONE (09:40)
[2022-03-22] MEDS ORDERED: PROPOFOL 20 ML ONE ×2 (10:01→10:53)
[2022-03-22] MEDS ORDERED: ACETAMINOPHEN 500 MG TABLET (FP) PO PRN ×2 (11:55→12:02)
[2022-03-22] MEDS ORDERED: ONDANSETRON 4 MG/2 ML VIAL IVPUSH PRN (11:55)
[2022-03-22] MEDS ORDERED: ONDANSETRON 4 MG/2 ML VIAL IVPB PRN (12:02)
[2022-03-22] MEDS ORDERED: ALPRAZolam 1 MG TABLET PO ONE (12:02)
[2022-03-22] MEDS ORDERED: HYDROmorphone HCl 2 MG/ML VIAL IVPB PRN (12:03)
[2022-03-22] MEDS ORDERED: LACTATED RINGERS SOLUTION 1,000 ML/1,000 ML INFUS.BAG IV SCH (12:15)
[2022-03-22] MEDS ORDERED: DOCUSATE SODIUM 100 MG CAPSULE (FP) PO SCH (14:00)
[2022-03-22 16:02] VITALS: RESP 20; TEMP 97.2
[2022-03-22 17:08] VITALS: BP 120/69; PULSE 78
[2022-03-22] MEDS ORDERED: CEFAZOLIN 1 GM in DEXTROSE 5%-WATER - 50 ML IVPB SCH (18:00)
== END 2022-03-22 17:05 | disposition home or self-care (01) ==
LOC: JASUSAT 04:34
PROVIDERS: ATTEND Surgery
PROC: C71L1ZZ Planar Nuclear Medicine Imaging of Upper Chest Lymphatics using Technetium 99m (Tc-99m) (ICD-10-PCS; 2022-03-22)
PROC: 0HTV0ZZ Resection of Bilateral Breast, Open Approach (ICD-10-PCS; principal; 2022-03-22 09:00)
PROC: 07B60ZX Excision of Left Axillary Lymphatic, Open Approach, Diagnostic (ICD-10-PCS; 2022-03-22 09:00)
DX: C50.912 Malignant neoplasm of unspecified site of left female breast (principal); C77.3 Secondary and unspecified malignant neoplasm of axilla and upper limb lymph nodes
CPT/HCPCS: 78195-TC; 82962; 88307-TC; 94760; A9541; Q9968

== ENCOUNTER 2022-05-11 08:56 | Emergency (ER) | payer BC ==
[2022-05-11 09:03] VITALS: BP 119/76; PULSE 77; RESP 16; TEMP 98.2; BMI 38.2
[2022-05-11] MEDS ORDERED: KETOROLAC TROMETHAMINE 30 MG/1 ML VIAL IM ONE (09:27)
[2022-05-11] MEDS ORDERED: METHOCARBAMOL 500 MG TABLET PO ONE (09:27)
[2022-05-11] MEDS ORDERED: LIDOCAINE 5% TOPICAL PATCH TP ONE (09:27)
[2022-05-11] MEDS ORDERED: KETOROLAC TROMETHAMINE 30 MG/1 ML VIAL ONE (09:34)
[2022-05-11] MEDS ORDERED: LIDOCAINE 5% TOPICAL PATCH ONE (09:34)
[2022-05-11] MEDS ORDERED: METHOCARBAMOL 500 MG TABLET ONE (09:34)
[2022-05-11] MEDS ORDERED: LIDOCAINE PATCH REMOVAL MC SCH (22:00)
== END 2022-05-11 10:15 | disposition home or self-care (01) ==
LOC: JERFT 08:56 → JER 08:56 → JERFT 10:15
PROC: 3E0233Z Introduction of Anti-inflammatory into Muscle, Percutaneous Approach (ICD-10-PCS; principal; 2022-05-11)
DX: M54.42 Lumbago with sciatica, left side (principal)
CPT/HCPCS: 99284-25

== ENCOUNTER 2022-06-13 10:35 | Emergency (ER) | payer BC ==
[2022-06-13 10:56] VITALS: BP 139/79; PULSE 85; RESP 22; TEMP 98.1; BMI 38.2
[2022-06-13] MEDS ORDERED: ACETAMINOPHEN 325 MG TABLET (FP) PO ONE (11:52)
[2022-06-13] MEDS ORDERED: IBUPROFEN 400 MG TABLET (FP) PO ONE ×2 (11:52→15:31)
[2022-06-13] MEDS ORDERED: ACETAMINOPHEN 325 MG TABLET (FP) ONE (15:31)
== END 2022-06-13 15:45 | disposition home or self-care (01) ==
LOC: JER 10:35
DX: M25.462 Effusion, left knee (principal)
CPT/HCPCS: 73560-TC-LT-FY; 93005; 93010; 93971-TC; 99285-25

== ENCOUNTER 2022-10-04 08:59 | Inpatient (IN) | payer BC ==
[2022-10-04 09:10] VITALS: BMI 38.0
[2022-10-04] MEDS ORDERED: SODIUM CHLORIDE 0.9% 500 ML INFUS.BAG IV ONE (09:26)
[2022-10-04] MEDS ORDERED: ACETAMINOPHEN 1000 MG/100 ML BAG IVPB ONE (09:26)
[2022-10-04] MEDS ORDERED: ONDANSETRON 4 MG/2 ML VIAL IVPUSH ONE (09:26)
[2022-10-04] MEDS ORDERED: VANCOMYCIN 1 GM in D5W (PRE-DOCKED) 1,000 MG/250 ML (RESTRICTED TO ID ONLY IVPB ONE (09:44)
[2022-10-04] MEDS ORDERED: PIPERACILLIN/TAZOB 3.375 GM 3.375 GM in DEXTROSE 5%-WATER - 50 ML IVPB ONE ×2 (09:44→19:00)
[2022-10-04] MEDS ORDERED: ACETAMINOPHEN INJECTION 100 ML IVPB ONE ×2 (10:05→18:16)
[2022-10-04] MEDS ORDERED: PIPERACILLIN/TAZOB 3.375 GM 3.375 GM/50 ML BAG IVPB ONE (10:05)
[2022-10-04] MEDS ORDERED: VANCOMYCIN/WATER FOR INJ (PEG) 1,000 MG/200 ML BAG IVPB ONE (10:05)
[2022-10-04] MEDS ORDERED: ONDANSETRON 4 MG/2 ML VIAL ONE (10:05)
[2022-10-04] MEDS ORDERED: morphine CARPU-JECT 4 MG/1 ML DISP.SYRIN IVPUSH ONE (10:48)
[2022-10-04] MEDS ORDERED: morphine SULFATE 4 MG/ML VIAL ONE (10:50)
[2022-10-04 11:13] LABS: BASO % 0.3 % (0-2.0); EOS % 0.1 % (0-4.5); HEMOGLOBIN 13.5 GM/dL (10.7-15.3); LYMPH % 6.1 % (8-40); MCH 26.6 pg (25.7-33.7); MEAN CELL VOLUME 80.7 fl (80-96); MEAN PLT VOLUME 8.2 fl (7.5-11.1); MONO % 7.6 % (3.8-10.2); NEUT % 85.9 % (42.8-82.8); PLATELET COUNT 238 10^3/uL (134-434); RBC 5.08 M/mm3 (3.60-5.2); RDW 14.5 % (11.6-15.6); WHITE BLOOD COUNT 16.7 K/mm3 (4.0-10.0)
[2022-10-04 11:16] LABS: INR 1.31 (0.83-1.09); PROTHROMBIN TIME (PATIENT) 15.1 SEC (9.7-13.0)
[2022-10-04 11:19] LABS: ACTIVATED PTT 28.7 SECONDS (25.2-36.5)
[2022-10-04 11:32] LABS: POTASSIUM 3.7 mmol/L (3.5-5.1)
[2022-10-04 11:36] LABS: ALBUMIN 2.8 g/dl (3.4-5.0); BLOOD UREA NITROGEN 9.6 mg/dL (7-18); CALCIUM 8.9 mg/dL (8.5-10.1); MAGNESIUM 2.1 mg/dL (1.8-2.4)
[2022-10-04 11:39] LABS: CREATININE 0.7 mg/dL (0.55-1.3)
[2022-10-04 11:40] LABS: BILIRUBIN,TOTAL 0.9 mg/dL (0.2-1)
[2022-10-04 12:02] LABS: ERYTHROCYTE SEDIMENTATION RATE 29 mm/hr (0-30)
[2022-10-04 12:54] LABS: EPI CELLS 16 /uL (0-25.1); HYALINE CASTS 0 /uL (0-3.1); URINE APPEARANCE CLEAR; URINE BACTERIA 324 /uL (0-1359); URINE BILIRUBIN NEGATIVE (NEGATIVE); URINE COLOR DK YELLOW; URINE GLUCOSE (UA) NEGATIVE (NEGATIVE); URINE KETONE TRACE (NEGATIVE); URINE LEUK ESTERASE TRACE (NEGATIVE); URINE NITRITE NEGATIVE (NEGATIVE); URINE PROTEIN NEGATIVE (NEGATIVE); URINE RBC 35 /uL (0-23.9); URINE WBC 18 /uL (0-25.8)
[2022-10-04] MEDS ORDERED: LACTATED RINGERS SOLUTION 1,000 ML/1,000 ML INFUS.BAG IV STA (13:21)
[2022-10-04] MEDS ORDERED: ENOXAPARIN NA (PORCINE) 40 MG/0.4 ML DISP.SYRIN SQ ONE (16:09)
[2022-10-04] MEDS: ENOXAPARIN NA (PORCINE) 40 MG/0.4 ML DISP.SYRIN SQ SCH (16:27)
[2022-10-04] MEDS: LACTATED RINGERS SOLUTION 1,000 ML/1,000 ML INFUS.BAG IV SCH (16:27)
[2022-10-04] MEDS: ACETAMINOPHEN 1000 MG/100 ML BAG IVPB PRN (18:17)
[2022-10-04] MEDS: INSULIN SLIDING SCALE (NOVOLOG) 1 VIAL SQ SCH ×2 (18:24→22:00)
[2022-10-04] MEDS: PIPERACILLIN/TAZOB 3.375 GM 3.375 GM in DEXTROSE 5%-WATER - 50 ML IVPB SCH (19:21)
[2022-10-04] MEDS ORDERED: VANCOMYCIN 1 GM/200 ML PREMIX BAG (RESTRICTED TO ID ONLY) IVPB SCH (22:00)
[2022-10-05] MEDS ORDERED: VANCOMYCIN/WATER FOR INJ (PEG) 1,000 MG/200 ML BAG IVPB SCH
[2022-10-05] MEDS: VANCOMYCIN/WATER FOR INJ (PEG) 1,000 MG/200 ML BAG IVPB SCH ×3 (00:30→23:40)
[2022-10-05] MEDS ORDERED: PIPERACILLIN/TAZOB 3.375 GM 3.375 GM in DEXTROSE 5%-WATER - 50 ML IVPB SCH ×2 (02:00→03:00)
[2022-10-05] MEDS: PIPERACILLIN/TAZOB 3.375 GM 3.375 GM in DEXTROSE 5%-WATER - 50 ML IVPB SCH ×3 (02:31→17:01)
[2022-10-05] MEDS: INSULIN SLIDING SCALE (NOVOLOG) 1 VIAL SQ SCH ×4 (06:00→21:42)
[2022-10-05] MEDS: ACETAMINOPHEN 1000 MG/100 ML BAG IVPB PRN (06:20)
[2022-10-05 10:22] LABS: HEMATOCRIT 37.5 % (32.4-45.2); HEMOGLOBIN 12.4 GM/dL (10.7-15.3); MCH 26.8 pg (25.7-33.7); MCHC 33.1 g/dl (32.0-36.0); MEAN CELL VOLUME 81.2 fl (80-96); MEAN PLT VOLUME 8.5 fl (7.5-11.1); PLATELET COUNT 214 10^3/uL (134-434); RBC 4.62 M/mm3 (3.60-5.2); RDW 14.1 % (11.6-15.6); WHITE BLOOD COUNT 14.2 K/mm3 (4.0-10.0)
[2022-10-05] MEDS: ENOXAPARIN NA (PORCINE) 40 MG/0.4 ML DISP.SYRIN SQ SCH (10:40)
[2022-10-05 10:45] LABS: POTASSIUM 3.8 mmol/L (3.5-5.1)
[2022-10-05 10:47] LABS: ALBUMIN 2.4 g/dl (3.4-5.0); BLOOD UREA NITROGEN 7.1 mg/dL (7-18); CALCIUM 8.2 mg/dL (8.5-10.1)
[2022-10-05 10:50] LABS: CREATININE 0.7 mg/dL (0.55-1.3)
[2022-10-05 10:52] LABS: BILIRUBIN,TOTAL 1.1 mg/dL (0.2-1); TOT PROT 5.7 g/dl (6.4-8.2)
[2022-10-05] MEDS ORDERED: ACETAMINOPHEN 1000 MG/100 ML BAG IVPB PRN ×2 (11:28→17:41)
[2022-10-05] MEDS ORDERED: VANCOMYCIN 1 GM in D5W (PRE-DOCKED) 1,000 MG/250 ML (RESTRICTED TO ID ONLY IVPB SCH (12:00)
[2022-10-05] MEDS: LACTATED RINGERS SOLUTION 1,000 ML/1,000 ML INFUS.BAG IV SCH (16:10)
[2022-10-05] MEDS ORDERED: IBUPROFEN 600 MG TABLET (FP) PO PRN (17:42)
[2022-10-05] MEDS: oxyCODONE HCL 5 MG TABLET PO PRN (18:20)
[2022-10-06] MEDS: PIPERACILLIN/TAZOB 3.375 GM 3.375 GM in DEXTROSE 5%-WATER - 50 ML IVPB SCH ×3 (01:07→09:40)
[2022-10-06] MEDS: oxyCODONE HCL 5 MG TABLET PO PRN ×4 (01:19→18:36)
[2022-10-06] MEDS: INSULIN SLIDING SCALE (NOVOLOG) 1 VIAL SQ SCH ×4 (06:26→21:33)
[2022-10-06 09:25] LABS: HEMATOCRIT 35.5 % (32.4-45.2); HEMOGLOBIN 12.1 GM/dL (10.7-15.3); MCH 27.5 pg (25.7-33.7); MCHC 34.2 g/dl (32.0-36.0); MEAN CELL VOLUME 80.5 fl (80-96); PLATELET COUNT 201 10^3/uL (134-434); RBC 4.41 M/mm3 (3.60-5.2); RDW 14.3 % (11.6-15.6); WHITE BLOOD COUNT 8.8 K/mm3 (4.0-10.0)
[2022-10-06] MEDS: ENOXAPARIN NA (PORCINE) 40 MG/0.4 ML DISP.SYRIN SQ SCH (09:40)
[2022-10-06] MEDS: ANASTROZOLE 1 MG TABLET PO SCH (09:40)
[2022-10-06 09:53] LABS: POTASSIUM 3.6 mmol/L (3.5-5.1)
[2022-10-06 10:08] LABS: ALBUMIN 2.2 g/dl (3.4-5.0); BLOOD UREA NITROGEN 6.6 mg/dL (7-18)
[2022-10-06 10:11] LABS: CREATININE 0.5 mg/dL (0.55-1.3)
[2022-10-06 10:13] LABS: BILIRUBIN,TOTAL 1.2 mg/dL (0.2-1); TOT PROT 5.4 g/dl (6.4-8.2)
[2022-10-06] MEDS: VANCOMYCIN/WATER FOR INJ (PEG) 1,000 MG/200 ML BAG IVPB SCH (13:05)
[2022-10-06] MEDS: DAPTOMYCIN 720 MG in SODIUM CHLORIDE 50 ML IVPB SCH (17:24)
[2022-10-06] MEDS ORDERED: ONDANSETRON 4 MG/2 ML VIAL IVPUSH PRN (17:33)
[2022-10-06] MEDS: MELATONIN 5 MG TABLETS PO PRN (21:36)
[2022-10-07] MEDS: oxyCODONE HCL 5 MG TABLET PO PRN ×2 (05:32→10:41)
[2022-10-07] MEDS: INSULIN SLIDING SCALE (NOVOLOG) 1 VIAL SQ SCH ×4 (06:48→22:29)
[2022-10-07] MEDS ORDERED: ACETAMINOPHEN 500 MG TABLET (FP) PO PRN (07:05)
[2022-10-07] MEDS ORDERED: POLYETHYLENE GLYCOL (HEALTHYLAX) 3350 17 GM PACKET PO PRN (09:07)
[2022-10-07] MEDS ORDERED: POLYETHYLENE GLYCOL (HEALTHYLAX) 3350 17 GM PACKET PO ONE (09:09)
[2022-10-07] MEDS: ANASTROZOLE 1 MG TABLET PO SCH (10:26)
[2022-10-07] MEDS: ENOXAPARIN NA (PORCINE) 40 MG/0.4 ML DISP.SYRIN SQ SCH (10:34)
[2022-10-07 10:51] LABS: HEMATOCRIT 38.5 % (32.4-45.2); HEMOGLOBIN 12.9 GM/dL (10.7-15.3); MCH 27.2 pg (25.7-33.7); MCHC 33.5 g/dl (32.0-36.0); MEAN CELL VOLUME 81.2 fl (80-96); MEAN PLT VOLUME 8.4 fl (7.5-11.1); PLATELET COUNT 250 10^3/uL (134-434); RBC 4.74 M/mm3 (3.60-5.2); RDW 13.9 % (11.6-15.6); WHITE BLOOD COUNT 7.4 K/mm3 (4.0-10.0)
[2022-10-07 11:18] LABS: POTASSIUM 3.5 mmol/L (3.5-5.1)
[2022-10-07 11:27] LABS: BLOOD UREA NITROGEN 8.2 mg/dL (7-18)
[2022-10-07 11:28] LABS: CALCIUM 8.4 mg/dL (8.5-10.1)
[2022-10-07 11:30] LABS: CREATININE 0.6 mg/dL (0.55-1.3)
[2022-10-07] MEDS ORDERED: morphine CARPU-JECT 4 MG/1 ML DISP.SYRIN IM PRN (15:07)
[2022-10-07] MEDS ORDERED: morphine SULFATE 4 MG/ML VIAL IM PRN (15:10)
[2022-10-07] MEDS: morphine SULFATE 4 MG/ML VIAL IVPUSH PRN ×2 (15:50→22:30)
[2022-10-07] MEDS: DAPTOMYCIN 720 MG in SODIUM CHLORIDE 50 ML IVPB SCH (18:23)
[2022-10-07] MEDS: ACETAMINOPHEN 500 MG TABLET (FP) PO PRN (20:33)
[2022-10-07] MEDS: SENNOSIDES 8.6MG TABLET (FP) PO SCH (22:29)
[2022-10-07] MEDS: MELATONIN 5 MG TABLETS PO PRN (22:30)
[2022-10-08] MEDS: INSULIN SLIDING SCALE (NOVOLOG) 1 VIAL SQ SCH ×4 (06:31→21:17)
[2022-10-08] MEDS ORDERED: PROPOFOL 20 ML ONE (08:33)
[2022-10-08] MEDS ORDERED: LIDOCAINE HCL 1%, 10 MG/ML (10ML VIAL) MDV ONE (08:40)
[2022-10-08 08:50] LABS: HEMATOCRIT 36.3 % (32.4-45.2); HEMOGLOBIN 11.9 GM/dL (10.7-15.3); MCH 26.5 pg (25.7-33.7); MCHC 32.7 g/dl (32.0-36.0); MEAN PLT VOLUME 7.8 fl (7.5-11.1); PLATELET COUNT 252 10^3/uL (134-434); RBC 4.49 M/mm3 (3.60-5.2); RDW 14.1 % (11.6-15.6); WHITE BLOOD COUNT 6.8 K/mm3 (4.0-10.0)
[2022-10-08] MEDS ORDERED: ONDANSETRON 4 MG/2 ML VIAL ONE (09:12)
[2022-10-08] MEDS ORDERED: SEVOFLURANE 250 ML BTL ONE (09:12)
[2022-10-08] MEDS ORDERED: LIDOCAINE HCL/PF 2% SDV 5ML VIAL ONE (09:12)
[2022-10-08] MEDS ORDERED: DEXAMETHASONE SOD PHOSPHATE 4 MG/1 ML VIAL ONE (09:13)
[2022-10-08] MEDS ORDERED: KETOROLAC TROMETHAMINE 30 MG/1 ML VIAL ONE (09:13)
[2022-10-08] MEDS ORDERED: CLINDAMYCIN PHOSPHATE 600 MG/4 ML VIAL ONE (09:35)
[2022-10-08] MEDS ORDERED: CLINDAMYCIN 600 MG PREMIX BAG IVPB ONE (09:37)
[2022-10-08] MEDS ORDERED: LIDOCAINE HCL 1%, 10 MG/ML (20ML VIAL) INF ONE ×2 (09:38)
[2022-10-08] MEDS ORDERED: BACITRACIN ZINC 15 GM TUBE TOPICAL OINTMENT TP ONE (09:42)
[2022-10-08] MEDS ORDERED: BACITRACIN ZINC 15 GM TUBE TOPICAL OINTMENT ONE (09:50)
[2022-10-08] MEDS: ENOXAPARIN NA (PORCINE) 40 MG/0.4 ML DISP.SYRIN SQ SCH (11:10)
[2022-10-08] MEDS: ANASTROZOLE 1 MG TABLET PO SCH (11:10)
[2022-10-08] MEDS: oxyCODONE HCL 5 MG TABLET PO PRN ×2 (13:38→21:17)
[2022-10-08] MEDS: LACTATED RINGERS SOLUTION 1,000 ML IV SCH ×2 (13:39→20:30)
[2022-10-08] MEDS: DAPTOMYCIN 720 MG in SODIUM CHLORIDE 50 ML IVPB SCH (17:55)
[2022-10-08] MEDS: SENNOSIDES 8.6MG TABLET (FP) PO SCH (21:16)
[2022-10-09] MEDS: MELATONIN 5 MG TABLETS PO PRN (00:15)
[2022-10-09] MEDS: INSULIN SLIDING SCALE (NOVOLOG) 1 VIAL SQ SCH ×4 (06:22→21:40)
[2022-10-09 09:24] LABS: BASO % 0.2 % (0-2.0); EOS % 0.1 % (0-4.5); HEMATOCRIT 32.6 % (32.4-45.2); HEMOGLOBIN 11.5 GM/dL (10.7-15.3); LYMPH % 7.3 % (8-40); MCH 27.8 pg (25.7-33.7); MCHC 35.2 g/dl (32.0-36.0); MEAN CELL VOLUME 78.9 fl (80-96); MEAN PLT VOLUME 7.4 fl (7.5-11.1); MONO % 6.7 % (3.8-10.2); NEUT % 85.7 % (42.8-82.8); PLATELET COUNT 279 10^3/uL (134-434); RBC 4.13 M/mm3 (3.60-5.2); WHITE BLOOD COUNT 10.3 K/mm3 (4.0-10.0)
[2022-10-09] MEDS: ACETAMINOPHEN 500 MG TABLET (FP) PO PRN ×2 (09:54→21:42)
[2022-10-09] MEDS: ENOXAPARIN NA (PORCINE) 40 MG/0.4 ML DISP.SYRIN SQ SCH (09:55)
[2022-10-09] MEDS: ANASTROZOLE 1 MG TABLET PO SCH (09:55)
[2022-10-09 10:14] LABS: POTASSIUM 3.7 mmol/L (3.5-5.1)
[2022-10-09 10:17] LABS: CALCIUM 7.9 mg/dL (8.5-10.1)
[2022-10-09 10:18] LABS: ALBUMIN 2.1 g/dl (3.4-5.0)
[2022-10-09 10:21] LABS: CREATININE 0.6 mg/dL (0.55-1.3)
[2022-10-09 10:22] LABS: BILIRUBIN,TOTAL 0.4 mg/dL (0.2-1); TOT PROT 5.2 g/dl (6.4-8.2)
[2022-10-09] MEDS: LACTATED RINGERS SOLUTION 1,000 ML IV SCH (12:10)
[2022-10-09] MEDS: DAPTOMYCIN 720 MG in SODIUM CHLORIDE 50 ML IVPB SCH (19:06)
[2022-10-09] MEDS: SENNOSIDES 8.6MG TABLET (FP) PO SCH (21:41)
[2022-10-10] MEDS: INSULIN SLIDING SCALE (NOVOLOG) 1 VIAL SQ SCH ×4 (06:26→22:03)
[2022-10-10 10:32] LABS: BASO % 0.7 % (0-2.0); EOS % 2.2 % (0-4.5); HEMATOCRIT 38.6 % (32.4-45.2); HEMOGLOBIN 12.6 GM/dL (10.7-15.3); LYMPH % 10.4 % (8-40); MCH 26.5 pg (25.7-33.7); MCHC 32.6 g/dl (32.0-36.0); MEAN CELL VOLUME 81.5 fl (80-96); MEAN PLT VOLUME 7.9 fl (7.5-11.1); MONO % 5.6 % (3.8-10.2); NEUT % 81.1 % (42.8-82.8); PLATELET COUNT 378 10^3/uL (134-434); RBC 4.74 M/mm3 (3.60-5.2); RDW 14.1 % (11.6-15.6); WHITE BLOOD COUNT 10.1 K/mm3 (4.0-10.0)
[2022-10-10 11:09] LABS: POTASSIUM 3.7 mmol/L (3.5-5.1)
[2022-10-10 11:17] LABS: BLOOD UREA NITROGEN 10.6 mg/dL (7-18); CREATININE 0.7 mg/dL (0.55-1.3)
[2022-10-10 11:19] LABS: BILIRUBIN,TOTAL 0.4 mg/dL (0.2-1)
[2022-10-10] MEDS: ANASTROZOLE 1 MG TABLET PO SCH (11:21)
[2022-10-10] MEDS: ENOXAPARIN NA (PORCINE) 40 MG/0.4 ML DISP.SYRIN SQ SCH (11:24)
[2022-10-10] MEDS: LACTATED RINGERS SOLUTION 1,000 ML IV SCH (11:24)
[2022-10-10 12:04] LABS: ALBUMIN 2.5 g/dl (3.4-5.0)
[2022-10-10] MEDS: oxyCODONE HCL 5 MG TABLET PO PRN ×2 (16:45→22:05)
[2022-10-10] MEDS: DAPTOMYCIN 720 MG in SODIUM CHLORIDE 50 ML IVPB SCH (18:14)
[2022-10-10] MEDS: SENNOSIDES 8.6MG TABLET (FP) PO SCH (22:04)
[2022-10-11] MEDS: INSULIN SLIDING SCALE (NOVOLOG) 1 VIAL SQ SCH ×4 (06:11→21:36)
[2022-10-11 08:58] LABS: HEMATOCRIT 35.9 % (32.4-45.2); MCH 27.2 pg (25.7-33.7); MCHC 33.5 g/dl (32.0-36.0); MEAN CELL VOLUME 81.1 fl (80-96); MEAN PLT VOLUME 7.5 fl (7.5-11.1); PLATELET COUNT 360 10^3/uL (134-434); RBC 4.42 M/mm3 (3.60-5.2); RDW 14.2 % (11.6-15.6); WHITE BLOOD COUNT 7.1 K/mm3 (4.0-10.0)
[2022-10-11 09:13] LABS: POTASSIUM 4.3 mmol/L (3.5-5.1)
[2022-10-11 09:14] LABS: CALCIUM 8.5 mg/dL (8.5-10.1)
[2022-10-11 09:15] LABS: BLOOD UREA NITROGEN 11.8 mg/dL (7-18)
[2022-10-11 09:18] LABS: CREATININE 0.7 mg/dL (0.55-1.3)
[2022-10-11] MEDS: ENOXAPARIN NA (PORCINE) 40 MG/0.4 ML DISP.SYRIN SQ SCH (09:54)
[2022-10-11] MEDS: ANASTROZOLE 1 MG TABLET PO SCH (09:54)
[2022-10-11] MEDS: DAPTOMYCIN 720 MG in SODIUM CHLORIDE 50 ML IVPB SCH (18:35)
[2022-10-11] MEDS: SENNOSIDES 8.6MG TABLET (FP) PO SCH (21:36)
[2022-10-12] MEDS: INSULIN SLIDING SCALE (NOVOLOG) 1 VIAL SQ SCH ×2 (06:23→11:27)
[2022-10-12 07:03] VITALS: TEMP 98.5
[2022-10-12] MEDS: ANASTROZOLE 1 MG TABLET PO SCH (09:38)
[2022-10-12] MEDS: ENOXAPARIN NA (PORCINE) 40 MG/0.4 ML DISP.SYRIN SQ SCH (09:38)
[2022-10-12] MEDS ORDERED: SULFAMETHOXAZOLE/TRIMETHOPRIM 800MG/160MG D.S. TABLET PO ONE (11:01)
[2022-10-12 11:18] LABS: HEMATOCRIT 38.2 % (32.4-45.2); HEMOGLOBIN 12.7 GM/dL (10.7-15.3); MCHC 33.3 g/dl (32.0-36.0); MEAN CELL VOLUME 81.2 fl (80-96); MEAN PLT VOLUME 7.6 fl (7.5-11.1); PLATELET COUNT 381 10^3/uL (134-434); RBC 4.71 M/mm3 (3.60-5.2); RDW 13.9 % (11.6-15.6); WHITE BLOOD COUNT 8.8 K/mm3 (4.0-10.0)
[2022-10-12 11:27] VITALS: BP 132/80; PULSE 73; RESP 18
[2022-10-12 12:51] LABS: ANISOCYTOSIS 0; MACROCYTOSIS 0
== END 2022-10-12 11:56 | disposition home or self-care (01) | DRG 872 ==
LOC: JER 08:59 → JERBED 13:12 → J5S 21:04
PROVIDERS: ADMIT Internal Medicine
PROC: 0H9U3ZX Drainage of Left Breast, Percutaneous Approach, Diagnostic (ICD-10-PCS; 2022-10-04)
PROC: 0H9U3ZX Drainage of Left Breast, Percutaneous Approach, Diagnostic (ICD-10-PCS; 2022-10-07)
PROC: 0W980ZZ Drainage of Chest Wall, Open Approach (ICD-10-PCS; principal; 2022-10-08 09:00)
DX: A41.9 Sepsis, unspecified organism (principal); M96.843 Postprocedural seroma of a musculoskeletal structure following other procedure; N61.0 Mastitis without abscess; I10 Essential (primary) hypertension; E78.5 Hyperlipidemia, unspecified; A49.02 Methicillin resistant Staphylococcus aureus infection, unspecified site; Z85.3 Personal history of malignant neoplasm of breast; Y83.9 Surgical procedure, unspecified as the cause of abnormal reaction of the patient, or of later complication, without mention of misadventure at the time of the procedure
CPT/HCPCS: 0241U-QW; 36415; 71045-TC-FY; 76604; 76604-TC; 76942-TC; 80048; 80053; 81003; 82550; 82962; 83036; 83605; 83735; 84484; 85025; 85027; 85610; 85651; 85730; 86140; 87040; 87070; 87075; 87086; 87102; 87116; 87186; 87205; 87206; 87210; 87899; 93005; 93010; 94760; 99285-25; J0878

== ENCOUNTER 2023-03-03 05:15 | Day surgery (SDC) | payer BC ==
[2023-03-01 12:45] VITALS: BMI 33.6
[2023-03-03] MEDS ORDERED: TETRACAINE/BENZOCAINE/BUTAMBEN 20 GM SPR TP ONE (08:04)
[2023-03-03] MEDS ORDERED: CEFAZOLIN SODIUM 2 GM VIAL ONE (08:08)
[2023-03-03 08:50] VITALS: TEMP 98
[2023-03-03 09:00] VITALS: RESP 18
[2023-03-03 09:39] VITALS: BP 120/60; PULSE 61
== END 2023-03-03 09:40 | disposition home or self-care (01) ==
LOC: JASU-ENDO 05:15
PROVIDERS: ATTEND Internal Medicine Gastroenterology
PROC: 0DB98ZX Excision of Duodenum, Via Natural or Artificial Opening Endoscopic, Diagnostic (ICD-10-PCS; 2023-03-03)
PROC: 0DB78ZX Excision of Stomach, Pylorus, Via Natural or Artificial Opening Endoscopic, Diagnostic (ICD-10-PCS; 2023-03-03)
PROC: 0DB68ZX Excision of Stomach, Via Natural or Artificial Opening Endoscopic, Diagnostic (ICD-10-PCS; 2023-03-03)
PROC: 0DJD8ZZ Inspection of Lower Intestinal Tract, Via Natural or Artificial Opening Endoscopic (ICD-10-PCS; principal; 2023-03-03 08:00)
DX: Z12.11 Encounter for screening for malignant neoplasm of colon (principal); K57.30 Diverticulosis of large intestine without perforation or abscess without bleeding; K29.50 Unspecified chronic gastritis without bleeding; K29.40 Chronic atrophic gastritis without bleeding; K64.8 Other hemorrhoids
CPT/HCPCS: 82962; 88305-TC; 88342-TC